=== PATIENT | male | born 1950 | race Caucasian/White ===

== ENCOUNTER 2020-07-26 12:34 | Inpatient (IN) | payer MEDICARE ==
[2020-07-26] MEDS ORDERED: Lasix 40 MG/4 ML IV ONE (12:45)
[2020-07-26 12:48] LABS: A-aADO2 47; ABG HEMOGLOBIN 14.2; ABG POTASSIUM 4.5 (3.5-5.1); ARTERIAL BLD GAS O2 SATURATION 99.7 % (95-100); ARTERIAL BLD GAS TIDAL VOLUME 12 cc; ARTERIAL BLOOD GAS BASE EXCESS -2.4 (-2.0-2.0); ARTERIAL BLOOD GAS FIO2 50 %; ARTERIAL BLOOD GAS PCO2 34 mmHg (35-45); ARTERIAL BLOOD GAS PO2 267 mmHg (75-100); ARTERIAL BLOOD GAS VENT MODE BiPAP; ARTERIAL BLOOD GAS pH 7.41 (7.35-7.45); HCO3- 21.6 (22-28); HGB O2 SAT 97.4 g/dF (94-100); Methhemoglobin 1.3 % (1.4-1.5); paO2 pAO1 0.85
[2020-07-26 12:49] LABS: ABG SITE LEFT BRACHIAL
[2020-07-26] MEDS ORDERED: Lasix 40 MG/4 ML ONE (12:49)
[2020-07-26] MEDS ORDERED: Levofloxacin 500MG/100ML D5W 500 MG/100 ML BAG IV STA (12:53)
[2020-07-26] MEDS ORDERED: Levofloxacin 500MG/100ML D5W 500 MG/100 ML BAG IV ONE (12:54)
--- NOTE | 2020-07-26 13:19 | XRAY ---
Indication: Short of breath. Dyspnea. Comparison: None Portable apical lordotic chest demonstrates cardiomegaly. No focal infiltrate, consolidation, or large effusion. Bony thorax intact with mild osteopenia, advanced left shoulder degenerative arthropathy, and incompletely visualized old left humeral neck fracture. Impression: Cardiomegaly. Negative for acute pneumonic process or CHF.
[2020-07-26 13:35] LABS: Absolute Neutrophil Ct (ANC) 5.46 (1.4-6.9); BASOPHIL % 0.1 % (0.0-0.4); Basophil (Absolute #) 0.01 (0-0.4); Eosinophil % 0.1 % (0.00-5.0); Eosinophil (Absolute #) 0.01 (0-0.5); Hemoglobin 14.1 gm/dl (12.5-18.0); Lymphocyte (Absolute #) 0.76 (1.0-4.6); Lymphocytes % 10.9 % (24.0-44.0); Mean Cell Volume 85.1 fl (78-100); Mean Corpuscular Hemoglobin 27.3 pg (26-32); Mean Platelet Volume 10.5 fl (7.5-11.0); Monocyte (Absolute #) 0.74 (0.0-1.3); Monocytes % 10.6 % (0.0-12.0); Neutrophil % 78.3 % (36.0-66.0); Platelet Count 247 K/mm3 (150-450); Red Blood Count 5.17 M/mm3 (4.1-5.6); Red Cell Distribution Width 18.9 % (11.5-14.0)
[2020-07-26 13:43] LABS: Appearance SLIGHTLY CLOUDY (CLEAR); Bacteria RARE /HPF (NEGATIVE); Bilirubin NEGATIVE (NEGATIVE); Blood NEGATIVE Ery/ul (0-5); Glucose NEGATIVE (NEGATIVE); Hyaline Casts 0-2 /LPF (0-2); Ketones NEGATIVE (NEGATIVE); Leukocyte Esterase NEGATIVE (NEGATIVE); Mucus SLIGHT /HPF (NEGATIVE); Nitrite NEGATIVE (NEGATIVE); Protein,Urine Dip 100 (Negative); Specific Gravity 1.025 (1.005-1.025); Urobilinogen 4 mg/dL (0-1)
[2020-07-26 14:05] LABS: ALKALINE PHOSPHATASE 130 U/L (38-126); BLOOD UREA NITROGEN 20 mg/dL (9-20); CHLORIDE 98 mmol/L (98-107); CK-Creatinine Phosphokinase 87 U/L (55-170); Calcium 9.2 mg/dL (8.4-10.2); Carbon Dioxide 24 mmol/L (22-30); Creatinine 1 0.74 mg/dL (0.66-1.25); EST GLOMERULAR FILTRATION RATE > 60.0 ML/MIN; Glucose 129 mg/dL (74-106); MAGNESIUM 2.3 mg/dL (1.6-2.3); NT PRO BNP 17100 pg/mL (0-900); Potassium 4.8 mmol/L (3.5-5.1); SGOT/AST 119 U/L (17-59); SGPT/ALT 78 U/L (0-50); SODIUM 134 mmol/L (137-145); Total Protein 7.7 g/dL (6.3-8.2)
--- NOTE | 2020-07-26 14:16 | ERPHSYRPT ---
- History of Present Illness Time Seen by Provider: 07/26/20 12:40 Source: patient Exam Limitations: no limitations Patient Subjective Stated Complaint: Feeling SOB, denies pain Triage Nursing Assessment: Patient to ED by EMS from [facility] with CC of increased SOB, respiratory distress. 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 Upon arrival, pt on CPAP, increased WOB noted. Respirations somewhat shallow, diminished lung sounds noted. 99% on CPAP. Skin pale, warm, and dry. Pt A &Ox3, answers questions appropriately, but appears drowsy. Nail beds somewhat blue, cap refill slightly delayed. Physician History: Patient to ED by EMS from [facility] with CC of increased SOB, respiratory distress. 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 Upon arrival, pt on CPAP, increased WOB noted. Respirations somewhat shallow, diminished lung sounds noted. Timing/Duration: today Activities at Onset: none Severity of Dyspnea-Max: moderate Severity of Dyspnea-Current: moderate Possible Cause: occasional episodes Modifying Factors: Improves With: exertion, oxygen, other (BiPAP) Associated Symptoms: constant, wheezing Allergies/Adverse Reactions: codeine Allergy (Unknown, Verified 07/26/20 13:01) Penicillins Allergy (Unknown, Verified 07/26/20 13:01) Hx Tetanus, Diphtheria Vaccination/Date Given: Yes Immunizations Up to Date: (unknown) Travel Risk - International Travel Have you traveled outside of the country in past 3 weeks: No - Coronavirus Screening Are you exhibiting any of the following symptoms?: Yes Symptoms: Shortness of Breath Close contact with a COVID-19 positive Pt in past 14-21 Days: No - Review of Systems Constitutional: No Fever, No Chills Eyes: No Symptoms Ears, Nose, & Throat: No Symptoms Respiratory: Cough, Dyspnea, Wheezing Cardiac: No Chest Pain, No Edema, No Syncope Abdominal/Gastrointestinal: No Abdominal Pain, No Nausea, No Vomiting, No Diarrhea Genitourinary Symptoms: No Dysuria Musculoskeletal: No Back Pain, No Neck Pain Skin: No Rash Neurological: No Dizziness, No Focal Weakness, No Sensory Changes Psychological: No Symptoms Endocrine: No Symptoms All Other Systems: Reviewed and Negative - Past Medical History Pertinent Past Medical History: Yes Neurological History: No Pertinent History ENT History: No Pertinent History Cardiac History: Congestive Heart Failure, Coronary Artery Disease Respiratory History: COPD Endocrine Medical History: Diabetes Type II Musculoskeletal History: No Pertinent History GI Medical History: No Pertinent History History: No Pertinent History Psycho-Social History: No Pertinent History Male Reproductive Disorders: No Pertinent History - Past Surgical History Past Surgical History: (unknown) - Social History Smoking Status: Unknown if ever smoked Exposure to second hand smoke: No Drug Use: none Patient Lives Alone: No ([facility]) - Nursing Vital Signs Nursing Vital Signs: Initial Vital Signs Pulse Rate 91 H 07/26/20 12:38 Respiratory Rate 23 07/26/20 12:38 Blood Pressure 127/95 07/26/20 12:38 O2 Sat by Pulse Oximetry 99 07/26/20 12:38 Pain Scale Pain Intensity 0 - Physical Exam General Appearance: no apparent distress, mild distress, alert, other (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, 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) Eye Exam: PERRL/EOMI Neck Exam: normal inspection, supple Respiratory Exam: normal breath sounds, lungs clear, respiratory distress, airway intact, diminished breath sounds, accessory muscle use, prolonged expirations Cardiovascular/Chest Exam: normal heart sounds, regular rate/rhythm Abdominal/Gastrointestinal Exam: soft, normal bowel sounds, No tenderness, No distention, No mass Extremity Exam: non-tender, normal range of motion, normal inspection, no calf tenderness, no pedal edema Neurologic Exam: alert, oriented x 3, cooperative, climbing guide II-XII nml as tested, sensation nml, No motor deficits Skin Exam: normal color, warm, No dry SpO2 Interpretation: hypoxic SpO2: 96 O2 Delivery: BiPap/CPAP Ordered Tests: Active Orders 24 hr Category Date Time Status Galvanometer Assembler STAT Care 07/26/20 12:46 Active EKG-ER Only STAT Care 07/26/20 12:45 Active Duffy [Catheter-[place] Duffy] STAT Care 07/26/20 12:58 Active IV Insertion STAT Care 07/26/20 12:45 Active Pulse Oximetry (ED) STAT Care 07/26/20 12:45 Active CHEST 1 VIEW (PORTABLE) Stat Exams 07/26/20 12:46 Completed ARTERIAL BLOOD GASES Urgent Lab 07/26/20 12:45 Completed BLOOD CULTURE Stat Lab 07/26/20 13:20 Received CBC W DIFF Stat Lab 07/26/20 13:05 Completed CK-Creatinine Phosphokinase Stat Lab 07/26/20 13:05 Completed CMP Stat Lab 07/26/20 13:05 Completed CULTURE,URINE Stat Lab 07/26/20 12:57 Ordered Lactic Acid Stat Lab 07/26/20 12:45 Completed Lactic Acid Stat Lab 07/26/20 14:50 Received MAGNESIUM Stat Lab 07/26/20 13:05 Completed NT PRO BNP Stat Lab 07/26/20 13:05 Completed PROTIME WITH INR Stat Lab 07/26/20 13:05 Completed PTT Stat Lab 07/26/20 13:05 Completed TROPONIN Q3H Lab 07/26/20 13:05 Completed TROPONIN Q3H Lab 07/26/20 15:45 Ordered TROPONIN Q3H Lab 07/26/20 18:45 Ordered UA W/RFX UR CULTURE Stat Lab 07/26/20 Completed BiPap/CPAP STAT RT 07/26/20 13:07 Active Medication Summary Discontinued Medications Generic Name Dose Route Start Last Admin Trade Name Freq PRN Reason Stop Dose Admin Furosemide 40 mg 07/26/20 12:45 07/26/20 12:50 Lasix 40 Mg/4 Ml IV 07/26/20 12:46 40 mg STAT ONE Administration Furosemide Confirm 07/26/20 12:49 Lasix 40 Mg/4 Ml Administered 07/26/20 12:50 Dose 40 mg .ROUTE .STK-MED ONE Levofloxacin/Dextrose 500 mg in 100 mls @ 100 mls/hr 07/26/20 12:53 07/26/20 13:57 Levofloxacin 500mg/100ml D5w IV 07/26/20 13:52 Infused STAT STA Infusion Levofloxacin/Dextrose Confirm 07/26/20 12:54 Levofloxacin 500mg/100ml D5w Administered 07/26/20 12:55 Dose 500 mg in 100 mls @ ud IV .STK-MED ONE Lab/Rad Data: Laboratory Result Diagrams 07/26/20 13:05 07/26/20 13:05 Laboratory Results 07/26/20 07/26/20 07/26/20 Range/Units Unknown 14:13 13:05 WBC (4.0-10.5) K/mm3 RBC (4.1-5.6) M/mm3 Hgb (12.5-18.0) gm/dl Hct (42-50) % MCV (78-100) fl MCH (26-32) pg MCHC (32-36) g/dl RDW (11.5-14.0) % Plt Count (150-450) K/mm3 MPV (7.5-11.0) fl Gran % (36.0-66.0) % Eos # (Auto) (0-0.5) Absolute Lymphs (auto) (1.0-4.6) Absolute Monos (auto) (0.0-1.3) Lymphocytes % (24.0-44.0) % Monocytes % (0.0-12.0) % Eosinophils % (0.00-5.0) % Basophils % (0.0-0.4) % Absolute Granulocytes (1.4-6.9) Basophils # (0-0.4) PT (8.83-12.87) SECONDS INR (0.8-3.0) APTT (24.1-36.1) SECONDS Puncture Site pCO2 (35-45) mmHg pO2 (75-100) mmHg Base Excess (-2.0-2.0) O2 Saturation (94-100) g/dF ABG pH (7.35-7.45) ABG HCO3 (22-28) ABG O2 Sat (Measured) (95-100) % Rahat Test A-a Gradient a/A Ratio Hemoglobin Carboxyhemoglobin (0.0-6.9) % THgb Methemoglobin (1.4-1.5) % Potassium (3.5-5.1) Temperature C POC O2 Flow Rate % Vent Mode Tidal Volume cc Inspiratory BiPAP Expiratory BiPAP Sodium (137-145) mmol/L Chloride (98-107) mmol/L Carbon Dioxide (22-30) mmol/L Anion Gap (5-15) MEQ/L BUN (9-20) mg/dL Creatinine (0.66-1.25) mg/dL Estimated GFR ML/MIN Glucose (74-106) mg/dL Lactic Acid (0.4-2.0) Calcium (8.4-10.2) mg/dL Magnesium (1.6-2.3) mg/dL Total Bilirubin (0.2-1.3) mg/dL AST (17-59) U/L ALT (0-50) U/L Alkaline Phosphatase (38-126) U/L Creatine Kinase (55-170) U/L Troponin I 0.023 (0.000-0.034) ng/mL NT-Pro-B Natriuret Pep (0-900) pg/mL Serum Total Protein (6.3-8.2) g/dL Albumin (3.5-5.0) g/dL Urine Color [place]ON (YELLOW) Urine Appearance SLIGHTLY CLOUDY (CLEAR) Urine pH 5.0 (5-6) Ur Specific [place] 1.025 (1.005-1.025) Urine Protein 100 (Negative) Urine Ketones NEGATIVE (NEGATIVE) Urine Blood NEGATIVE (0-5) Chepe/ul Urine Nitrite NEGATIVE (NEGATIVE) Urine Bilirubin NEGATIVE (NEGATIVE) Urine Urobilinogen 4 (0-1) mg/dL Ur Leukocyte Esterase NEGATIVE (NEGATIVE) Urine WBC (Auto) 3-5 (0-5) /HPF Urine RBC (Auto) 3-5 (0-2) /HPF U Hyaline Cast (Auto) 0-2 (0-2) /LPF U Epithel Cells (Auto) NONE (FEW) /HPF Urine Bacteria (Auto) RARE (NEGATIVE) /HPF Urine Mucus (Auto) SLIGHT (NEGATIVE) /HPF Urine Culture Reflexed NO (NO) Urine Glucose NEGATIVE (NEGATIVE) mg/dL SARS-CoV-2 (PCR) NEGATIVE (NEGATIVE) 07/26/20 07/26/20 07/26/20 Range/Units 13:05 13:05 13:05 WBC 7.0 (4.0-10.5) K/mm3 RBC 5.17 (4.1-5.6) M/mm3 Hgb 14.1 (12.5-18.0) gm/dl Hct 44.0 (42-50) % MCV 85.1 (78-100) fl MCH 27.3 (26-32) pg MCHC 32.0 (32-36) g/dl RDW 18.9 H (11.5-14.0) % Plt Count 247 (150-450) K/mm3 MPV 10.5 (7.5-11.0) fl Gran % 78.3 H (36.0-66.0) % Eos # (Auto) 0.01 (0-0.5) Absolute Lymphs (auto) 0.76 L (1.0-4.6) Absolute Monos (auto) 0.74 (0.0-1.3) Lymphocytes % 10.9 L (24.0-44.0) % Monocytes % 10.6 (0.0-12.0) % Eosinophils % 0.1 (0.00-5.0) % Basophils % 0.1 (0.0-0.4) % Absolute Granulocytes 5.46 (1.4-6.9) Basophils # 0.01 (0-0.4) PT 16.5 H (8.83-12.87) SECONDS INR 1.45 (0.8-3.0) APTT 27.9 (24.1-36.1) SECONDS Puncture Site pCO2 (35-45) mmHg pO2 (75-100) mmHg Base Excess (-2.0-2.0) O2 Saturation (94-100) g/dF ABG pH (7.35-7.45) ABG HCO3 (22-28) ABG O2 Sat (Measured) (95-100) % Rahat Test A-a Gradient a/A Ratio Hemoglobin Carboxyhemoglobin (0.0-6.9) % THgb Methemoglobin (1.4-1.5) % Potassium 4.8 (3.5-5.1) Temperature C POC O2 Flow Rate % Vent Mode Tidal Volume cc Inspiratory BiPAP Expiratory BiPAP Sodium 134 L (137-145) mmol/L Chloride 98 (98-107) mmol/L Carbon Dioxide 24 (22-30) mmol/L Anion Gap 16.0 H (5-15) MEQ/L BUN 20 (9-20) mg/dL Creatinine 0.74 (0.66-1.25) mg/dL Estimated GFR > 60.0 ML/MIN Glucose 129 H (74-106) mg/dL Lactic Acid (0.4-2.0) Calcium 9.2 (8.4-10.2) mg/dL Magnesium 2.3 (1.6-2.3) mg/dL Total Bilirubin 1.40 H (0.2-1.3) mg/dL AST 119 H (17-59) U/L ALT 78 H (0-50) U/L Alkaline Phosphatase 130 H (38-126) U/L Creatine Kinase 87 (55-170) U/L Troponin I (0.000-0.034) ng/mL NT-Pro-B Natriuret Pep 20237 H (0-900) pg/mL Serum Total Protein 7.7 (6.3-8.2) g/dL Albumin 4.0 (3.5-5.0) g/dL Urine Color (YELLOW) Urine Appearance (CLEAR) Urine pH (5-6) Ur Specific [place] (1.005-1.025) Urine Protein (Negative) Urine Ketones (NEGATIVE) Urine Blood (0-5) Chepe/ul Urine Nitrite (NEGATIVE) Urine Bilirubin (NEGATIVE) Urine Urobilinogen (0-1) mg/dL Ur Leukocyte Esterase (NEGATIVE) Urine WBC (Auto) (0-5) /HPF Urine RBC (Auto) (0-2) /HPF U Hyaline Cast (Auto) (0-2) /LPF U Epithel Cells (Auto) (FEW) /HPF Urine Bacteria (Auto) (NEGATIVE) /HPF Urine Mucus (Auto) (NEGATIVE) /HPF Urine Culture Reflexed (NO) Urine Glucose (NEGATIVE) mg/dL SARS-CoV-2 (PCR) (NEGATIVE) 07/26/20 07/26/20 Range/Units 12:45 12:45 WBC (4.0-10.5) K/mm3 RBC (4.1-5.6) M/mm3 Hgb (12.5-18.0) gm/dl Hct (42-50) % MCV (78-100) fl MCH (26-32) pg MCHC (32-36) g/dl RDW (11.5-14.0) % Plt Count (150-450) K/mm3 MPV (7.5-11.0) fl Gran % (36.0-66.0) % Eos # (Auto) (0-0.5) Absolute Lymphs (auto) (1.0-4.6) Absolute Monos (auto) (0.0-1.3) Lymphocytes % (24.0-44.0) % Monocytes % (0.0-12.0) % Eosinophils % (0.00-5.0) % Basophils % (0.0-0.4) % Absolute Granulocytes (1.4-6.9) Basophils # (0-0.4) PT (8.83-12.87) SECONDS INR (0.8-3.0) APTT (24.1-36.1) SECONDS Puncture Site LEFT BRACHIAL pCO2 34 L (35-45) mmHg pO2 267 H* (75-100) mmHg Base Excess -2.4 L (-2.0-2.0) O2 Saturation 97.4 (94-100) g/dF ABG pH 7.41 (7.35-7.45) ABG HCO3 21.6 L (22-28) ABG O2 Sat (Measured) 99.7 (95-100) % Rahat Test NOT APPLICABLE A-a Gradient 47 a/A Ratio 0.85 Hemoglobin 14.2 Carboxyhemoglobin 1.0 (0.0-6.9) % THgb Methemoglobin 1.3 L (1.4-1.5) % Potassium 4.5 (3.5-5.1) Temperature 37.0 C POC O2 Flow Rate 50 % Vent Mode BiPAP Tidal Volume 12 cc Inspiratory BiPAP 14 Expiratory BiPAP 6 Sodium (137-145) mmol/L Chloride (98-107) mmol/L Carbon Dioxide (22-30) mmol/L Anion Gap (5-15) MEQ/L BUN (9-20) mg/dL Creatinine (0.66-1.25) mg/dL Estimated GFR ML/MIN Glucose (74-106) mg/dL Lactic Acid 2.7 H (0.4-2.0) Calcium (8.4-10.2) mg/dL Magnesium (1.6-2.3) mg/dL Total Bilirubin (0.2-1.3) mg/dL AST (17-59) U/L ALT (0-50) U/L Alkaline Phosphatase (38-126) U/L Creatine Kinase (55-170) U/L Troponin I (0.000-0.034) ng/mL NT-Pro-B Natriuret Pep (0-900) pg/mL Serum Total Protein (6.3-8.2) g/dL Albumin (3.5-5.0) g/dL Urine Color (YELLOW) Urine Appearance (CLEAR) Urine pH (5-6) Ur Specific [place] (1.005-1.025) Urine Protein (Negative) Urine Ketones (NEGATIVE) Urine Blood (0-5) Chepe/ul Urine Nitrite (NEGATIVE) Urine Bilirubin (NEGATIVE) Urine Urobilinogen (0-1) mg/dL Ur Leukocyte Esterase (NEGATIVE) Urine WBC (Auto) (0-5) /HPF Urine RBC (Auto) (0-2) /HPF U Hyaline Cast (Auto) (0-2) /LPF U Epithel Cells (Auto) (FEW) /HPF Urine Bacteria (Auto) (NEGATIVE) /HPF Urine Mucus (Auto) (NEGATIVE) /HPF Urine Culture Reflexed (NO) Urine Glucose (NEGATIVE) mg/dL SARS-CoV-2 (PCR) (NEGATIVE) - Progress Progress: improved, re-examined Air Movement: fair Progress Note: 07/26/20 15:28 And was on BiPAP to begin with and then he started feeling better so we put him on the nasal cannula. Patient looks comfortable. I talked to Dr. Tirado and he agreed with admission. 07/26/20 15:30 Pt had signed DNR in ER Blood Culture(s) Obtained: Yes Antibiotics given: Yes Discussed with : Jenni Will see patient in: hospital (observation) Counseled pt/family regarding: lab results, diagnosis, rad results - Departure Departure Disposition: Observation Clinical Impression: Dyspnea CHF (congestive heart failure) Qualifiers: Heart failure type: unspecified Heart failure chronicity: acute on chronic Qualified Code(s): I50.9 - Heart failure, unspecified Condition: Fair Critical Care Time: No Referrals: TOMAS CHAUHAN [Primary Care Provider] - Instructions: Heart Failure
[2020-07-26 14:24] LABS: INR 1.45 (0.8-3.0); PROTIME 16.5 SECONDS (8.83-12.87)
[2020-07-26 14:27] LABS: PTT 27.9 SECONDS (24.1-36.1)
[2020-07-26] MEDS ORDERED: Lasix 20 MG/2 ML IV SCH (17:00)
[2020-07-26] MEDS ORDERED: HUMALOG SQ PRN (17:26)
[2020-07-26] MEDS ORDERED: NON-FORMULARY ITEM (Ondansetron Hcl [Zofran] 4 MG) PO PRN (17:29)
[2020-07-26] MEDS ORDERED: ZOFRAN ODT 4 MG PO PRN (17:36)
[2020-07-26] MEDS: Lasix 40 MG/4 ML IV SCH (20:27)
[2020-07-26] MEDS: ZOCOR 20MG PO SCH (21:52)
[2020-07-26] MEDS: Coreg 3.125 MG PO SCH (21:53)
[2020-07-26] MEDS: ENTRESTO 49 MG-51 MG TABLET PO SCH (21:53)
[2020-07-26] MEDS: LUMIGAN 0.01% 2.5 ML OP SCH (21:53)
[2020-07-26] MEDS ORDERED: NON-FORMULARY ITEM (Sacubitril/Valsartan [Entresto 24 Mg-26 Mg Tablet] 1 EACH) PO SCH (22:00)
[2020-07-27 05:53] LABS: Hematocrit 38.9 % (42-50); Hemoglobin 12.4 gm/dl (12.5-18.0); Mean Cell Volume 85.5 fl (78-100); Mean Corpuscular Hemoglobin 27.3 pg (26-32); Mean Corpuscular Hgb Concent. 31.9 g/dl (32-36); Mean Platelet Volume 10.8 fl (7.5-11.0); Platelet Count 192 K/mm3 (150-450); Red Blood Count 4.55 M/mm3 (4.1-5.6); Red Cell Distribution Width 18.2 % (11.5-14.0); White Blood Count 6.3 K/mm3 (4.0-10.5)
[2020-07-27] MEDS: SYNTHROID 25 MCG PO SCH (06:04)
[2020-07-27 06:22] LABS: ANION GAP 12.6 MEQ/L (5-15); BLOOD UREA NITROGEN 23 mg/dL (9-20); CHLORIDE 99 mmol/L (98-107); Calcium 8.7 mg/dL (8.4-10.2); Carbon Dioxide 27 mmol/L (22-30); Creatinine 1 0.63 mg/dL (0.66-1.25); EST GLOMERULAR FILTRATION RATE > 60.0 ML/MIN; Glucose 154 mg/dL (74-106); NT PRO BNP 16700 pg/mL (0-900); Potassium 3.9 mmol/L (3.5-5.1); SODIUM 134 mmol/L (137-145)
--- NOTE | 2020-07-27 08:19 | PCM.HP ---
History of Present Illness - Chief Complaint Chief Complaint: CHF, DYSPNEA History of Present Illness: is a 70 year old male who was sent for evaluation with shortness of breath and increased swelling, has a known hx of CHF. he denies complaints this morning but is disoriented and a very poor historian and hard to understand. negative fluid balance is documented - Review of Systems Constitutional: No Symptoms Respiratory: Short Of Breath Cardiac: Edema, No Chest Pain Abdominal/Gastrointestinal: No Abdominal Pain, No Nausea, No Vomiting, No Diarrhea Genitourinary Symptoms: No Dysuria Skin: No Rash All Other Systems: Reviewed and Negative Medications & Allergies Home Medications: Home Medication List Acetaminophen 325 mg [Tylenol 325 mg] 650 mg PO Q4HPRN PRN 07/26/20 [History Confirmed 07/26/20] Atorvastatin Calcium [Lipitor] 40 mg PO 1600 07/26/20 [History Confirmed 07/26/20] Bimatoprost 0.01% [Lumigan 0.01% 2.5 ml] 1 drop OP HS 07/26/20 [History Confirmed 07/26/20] Carvedilol 3.125 mg [Coreg 3.125 MG] 3.125 mg PO BID 07/26/20 [History Confirmed 07/26/20] Clopidogrel Bisulfate 75 mg [PLAVIX 75 MG Tablet] 75 mg PO DAILY 07/26/20 [History Confirmed 07/26/20] Furosemide 40 mg [Lasix 40 MG] 40 mg PO DAILY 07/26/20 [History Confirmed 07/26/20] Levothyroxine Sodium 25 Mcg [Synthroid 25 Mcg] 25 mcg PO 0600 07/26/20 [History Confirmed 07/26/20] Loratadine 10 mg [Claritin 10 mg] 10 mg PO DAILY PRN PRN 07/26/20 [History Confirmed 07/26/20] Magnesium Hydroxide 30 ml [Milk of Magnesia 30 ml] 30 ml PO DAILY PRN PRN 07/26/20 [History Confirmed 07/26/20] Metformin HCl 500 mg [Glucophage 500 MG] 500 mg PO BIDWM 07/26/20 [History Confirmed 07/26/20] Ondansetron HCl [Zofran] 4 mg PO Q4HPRN PRN 07/26/20 [History Confirmed 07/26/20] Potassium Chloride 10 Meq Tab* [Klor Con 10 MEQ] 20 meq PO DAILY 07/26/20 [History Confirmed 07/26/20] Sacubitril/Valsartan [Entresto 24 mg-26 mg Tablet] 1 each PO BID 07/26/20 [History Confirmed 07/26/20] Sodium Phosphate,Woodward-Dibasic [Enema] 133 ml RC DAILY PRN PRN 07/26/20 [History Confirmed 07/26/20] Allergies/Adverse Reactions: Allergies Allergy/AdvReac Type Severity Reaction Status Date / Time codeine Allergy Unknown Verified 07/26/20 13:01 Penicillins Allergy Unknown Verified 07/26/20 13:01 strawberry Allergy Verified 07/26/20 17:01 - Past Medical History Past Medical History: Yes Neurological History: No Pertinent History ENT History: No Pertinent History Cardiac History: Congestive Heart Failure, Coronary Artery Disease Respiratory History: COPD Endocrine Medical History: Diabetes Type II Musculoskelatal History: No Pertinent History GI Medical History: No Pertinent History History: No Pertinent History Pyscho-Social History: No Pertinent History Male Reproductive Disorders: No Pertinent History - Past Surgical History Past Surgical History: Yes Neuro Surgical History: No Pertinent History Cardiac History: No Pertinent History Respiratory Surgery: No Pertinent History GI Surgical History: No Pertinent History Genitourinary Surgical Hx: No Pertinent History Musculskeletal Surgical Hx: Other Male Surgical History: No Pertinent History Other Surgical History: LEFT SHOULDER - Social History Smoking Status: Former smoker Exposure to second hand smoke: No Alcohol: None Drug Use: none - Physical Exam Vital Signs: Vital Signs - 24 hr Temp Pulse Resp BP Pulse Ox 07/27/20 07:09 93 L 07/27/20 06:57 97.6 F 85 24 112/71 91 L 07/27/20 03:49 97.6 F 85 24 112/71 91 L 07/27/20 00:00 97.3 F 91 H 28 H 123/86 91 L 07/26/20 20:15 92 L 07/26/20 19:43 97.9 F 89 20 132/87 94 L 07/26/20 16:31 99 07/26/20 16:10 97.6 F 88 18 141/88 100 07/26/20 16:08 96.9 F 88 18 141/88 100 07/26/20 16:07 96.9 F 88 18 141/88 100 07/26/20 16:00 96.9 F 88 18 141/88 100 07/26/20 15:33 96 07/26/20 15:02 20 146/115 99 07/26/20 14:26 130/99 07/26/20 14:22 98.1 F 83 20 90 L 07/26/20 13:37 88 19 118/69 96 07/26/20 13:06 100 07/26/20 12:38 91 H 23 127/95 98 General Appearance: no apparent distress Respiratory Exam: crackles/rales Cardiovascular Exam: regular rate/rhythm, normal heart sounds, normal peripheral pulses Gastrointestinal/Abdomen Exam: soft, normal bowel sounds, No tenderness, No mass Extremity Exam: pedal edema Results - Labs Lab/Micro Results: Lab Results-Last 24 Hours 07/26/20 07/26/20 07/26/20 Range/Units 12:45 12:45 13:05 WBC 7.0 (4.0-10.5) K/mm3 RBC 5.17 (4.1-5.6) M/mm3 Hgb 14.1 (12.5-18.0) gm/dl Hct 44.0 (42-50) % MCV 85.1 (78-100) fl MCH 27.3 (26-32) pg MCHC 32.0 (32-36) g/dl RDW 18.9 H (11.5-14.0) % Plt Count 247 (150-450) K/mm3 MPV 10.5 (7.5-11.0) fl Gran % 78.3 H (36.0-66.0) % Eos # (Auto) 0.01 (0-0.5) Absolute Lymphs (auto) 0.76 L (1.0-4.6) Absolute Monos (auto) 0.74 (0.0-1.3) Lymphocytes % 10.9 L (24.0-44.0) % Monocytes % 10.6 (0.0-12.0) % Eosinophils % 0.1 (0.00-5.0) % Basophils % 0.1 (0.0-0.4) % Absolute Granulocytes 5.46 (1.4-6.9) Basophils # 0.01 (0-0.4) PT (8.83-12.87) SECONDS INR (0.8-3.0) APTT (24.1-36.1) SECONDS Puncture Site LEFT BRACHIAL pCO2 34 L (35-45) mmHg pO2 267 H* (75-100) mmHg Base Excess -2.4 L (-2.0-2.0) O2 Saturation 97.4 (94-100) g/dF ABG pH 7.41 (7.35-7.45) ABG HCO3 21.6 L (22-28) ABG O2 Sat (Measured) 99.7 (95-100) % Rahat Test NOT APPLICABLE A-a Gradient 47 a/A Ratio 0.85 Hemoglobin 14.2 Carboxyhemoglobin 1.0 (0.0-6.9) % THgb Methemoglobin 1.3 L (1.4-1.5) % Potassium 4.5 (3.5-5.1) Temperature 37.0 C POC O2 Flow Rate 50 % Vent Mode BiPAP Tidal Volume 12 cc Inspiratory BiPAP 14 Expiratory BiPAP 6 Sodium (137-145) mmol/L Chloride (98-107) mmol/L Carbon Dioxide (22-30) mmol/L Anion Gap (5-15) MEQ/L BUN (9-20) mg/dL Creatinine (0.66-1.25) mg/dL Estimated GFR ML/MIN Glucose (74-106) mg/dL POC Glucometer (74 to 106) mg/dL Hemoglobin A1c (4.5-6.0) % Lactic Acid 2.7 H (0.4-2.0) Calcium (8.4-10.2) mg/dL Magnesium (1.6-2.3) mg/dL Total Bilirubin (0.2-1.3) mg/dL AST (17-59) U/L ALT (0-50) U/L Alkaline Phosphatase (38-126) U/L Creatine Kinase (55-170) U/L Troponin I (0.000-0.034) ng/mL NT-Pro-B Natriuret Pep (0-900) pg/mL Serum Total Protein (6.3-8.2) g/dL Albumin (3.5-5.0) g/dL Urine Color (YELLOW) Urine Appearance (CLEAR) Urine pH (5-6) Ur Specific [place] (1.005-1.025) Urine Protein (Negative) Urine Ketones (NEGATIVE) Urine Blood (0-5) Chepe/ul Urine Nitrite (NEGATIVE) Urine Bilirubin (NEGATIVE) Urine Urobilinogen (0-1) mg/dL Ur Leukocyte Esterase (NEGATIVE) Urine WBC (Auto) (0-5) /HPF Urine RBC (Auto) (0-2) /HPF U Hyaline Cast (Auto) (0-2) /LPF U Epithel Cells (Auto) (FEW) /HPF Urine Bacteria (Auto) (NEGATIVE) /HPF Urine Mucus (Auto) (NEGATIVE) /HPF Urine Culture Reflexed (NO) Urine Glucose (NEGATIVE) mg/dL SARS-CoV-2 (PCR) (NEGATIVE) 07/26/20 07/26/20 07/26/20 Range/Units 13:05 13:05 13:05 WBC (4.0-10.5) K/mm3 RBC (4.1-5.6) M/mm3 Hgb (12.5-18.0) gm/dl Hct (42-50) % MCV (78-100) fl MCH (26-32) pg MCHC (32-36) g/dl RDW (11.5-14.0) % Plt Count (150-450) K/mm3 MPV (7.5-11.0) fl Gran % (36.0-66.0) % Eos # (Auto) (0-0.5) Absolute Lymphs (auto) (1.0-4.6) Absolute Monos (auto) (0.0-1.3) Lymphocytes % (24.0-44.0) % Monocytes % (0.0-12.0) % Eosinophils % (0.00-5.0) % Basophils % (0.0-0.4) % Absolute Granulocytes (1.4-6.9) Basophils # (0-0.4) PT 16.5 H (8.83-12.87) SECONDS INR 1.45 (0.8-3.0) APTT 27.9 (24.1-36.1) SECONDS Puncture Site pCO2 (35-45) mmHg pO2 (75-100) mmHg Base Excess (-2.0-2.0) O2 Saturation (94-100) g/dF ABG pH (7.35-7.45) ABG HCO3 (22-28) ABG O2 Sat (Measured) (95-100) % Rahat Test A-a Gradient a/A Ratio Hemoglobin Carboxyhemoglobin (0.0-6.9) % THgb Methemoglobin (1.4-1.5) % Potassium 4.8 (3.5-5.1) Temperature C POC O2 Flow Rate % Vent Mode Tidal Volume cc Inspiratory BiPAP Expiratory BiPAP Sodium 134 L (137-145) mmol/L Chloride 98 (98-107) mmol/L Carbon Dioxide 24 (22-30) mmol/L Anion Gap 16.0 H (5-15) MEQ/L BUN 20 (9-20) mg/dL Creatinine 0.74 (0.66-1.25) mg/dL Estimated GFR > 60.0 ML/MIN Glucose 129 H (74-106) mg/dL POC Glucometer (74 to 106) mg/dL Hemoglobin A1c (4.5-6.0) % Lactic Acid (0.4-2.0) Calcium 9.2 (8.4-10.2) mg/dL Magnesium 2.3 (1.6-2.3) mg/dL Total Bilirubin 1.40 H (0.2-1.3) mg/dL AST 119 H (17-59) U/L ALT 78 H (0-50) U/L Alkaline Phosphatase 130 H (38-126) U/L Creatine Kinase 87 (55-170) U/L Troponin I 0.023 (0.000-0.034) ng/mL NT-Pro-B Natriuret Pep 55261 H (0-900) pg/mL Serum Total Protein 7.7 (6.3-8.2) g/dL Albumin 4.0 (3.5-5.0) g/dL Urine Color (YELLOW) Urine Appearance (CLEAR) Urine pH (5-6) Ur Specific [place] (1.005-1.025) Urine Protein (Negative) Urine Ketones (NEGATIVE) Urine Blood (0-5) Chepe/ul Urine Nitrite (NEGATIVE) Urine Bilirubin (NEGATIVE) Urine Urobilinogen (0-1) mg/dL Ur Leukocyte Esterase (NEGATIVE) Urine WBC (Auto) (0-5) /HPF Urine RBC (Auto) (0-2) /HPF U Hyaline Cast (Auto) (0-2) /LPF U Epithel Cells (Auto) (FEW) /HPF Urine Bacteria (Auto) (NEGATIVE) /HPF Urine Mucus (Auto) (NEGATIVE) /HPF Urine Culture Reflexed (NO) Urine Glucose (NEGATIVE) mg/dL SARS-CoV-2 (PCR) (NEGATIVE) 07/26/20 07/26/20 07/26/20 Range/Units 14:13 14:50 15:45 WBC (4.0-10.5) K/mm3 RBC (4.1-5.6) M/mm3 Hgb (12.5-18.0) gm/dl Hct (42-50) % MCV (78-100) fl MCH (26-32) pg MCHC (32-36) g/dl RDW (11.5-14.0) % Plt Count (150-450) K/mm3 MPV (7.5-11.0) fl Gran % (36.0-66.0) % Eos # (Auto) (0-0.5) Absolute Lymphs (auto) (1.0-4.6) Absolute Monos (auto) (0.0-1.3) Lymphocytes % (24.0-44.0) % Monocytes % (0.0-12.0) % Eosinophils % (0.00-5.0) % Basophils % (0.0-0.4) % Absolute Granulocytes (1.4-6.9) Basophils # (0-0.4) PT (8.83-12.87) SECONDS INR (0.8-3.0) APTT (24.1-36.1) SECONDS Puncture Site pCO2 (35-45) mmHg pO2 (75-100) mmHg Base Excess (-2.0-2.0) O2 Saturation (94-100) g/dF ABG pH (7.35-7.45) ABG HCO3 (22-28) ABG O2 Sat (Measured) (95-100) % Rahat Test A-a Gradient a/A Ratio Hemoglobin Carboxyhemoglobin (0.0-6.9) % THgb Methemoglobin (1.4-1.5) % Potassium (3.5-5.1) Temperature C POC O2 Flow Rate % Vent Mode Tidal Volume cc Inspiratory BiPAP Expiratory BiPAP Sodium (137-145) mmol/L Chloride (98-107) mmol/L Carbon Dioxide (22-30) mmol/L Anion Gap (5-15) MEQ/L BUN (9-20) mg/dL Creatinine (0.66-1.25) mg/dL Estimated GFR ML/MIN Glucose (74-106) mg/dL POC Glucometer (74 to 106) mg/dL Hemoglobin A1c (4.5-6.0) % Lactic Acid 3.4 H (0.4-2.0) Calcium (8.4-10.2) mg/dL Magnesium (1.6-2.3) mg/dL Total Bilirubin (0.2-1.3) mg/dL AST (17-59) U/L ALT (0-50) U/L Alkaline Phosphatase (38-126) U/L Creatine Kinase (55-170) U/L Troponin I 0.023 (0.000-0.034) ng/mL NT-Pro-B Natriuret Pep (0-900) pg/mL Serum Total Protein (6.3-8.2) g/dL Albumin (3.5-5.0) g/dL Urine Color (YELLOW) Urine Appearance (CLEAR) Urine pH (5-6) Ur Specific [place] (1.005-1.025) Urine Protein (Negative) Urine Ketones (NEGATIVE) Urine Blood (0-5) Chepe/ul Urine Nitrite (NEGATIVE) Urine Bilirubin (NEGATIVE) Urine Urobilinogen (0-1) mg/dL Ur Leukocyte Esterase (NEGATIVE) Urine WBC (Auto) (0-5) /HPF Urine RBC (Auto) (0-2) /HPF U Hyaline Cast (Auto) (0-2) /LPF U Epithel Cells (Auto) (FEW) /HPF Urine Bacteria (Auto) (NEGATIVE) /HPF Urine Mucus (Auto) (NEGATIVE) /HPF Urine Culture Reflexed (NO) Urine Glucose (NEGATIVE) mg/dL SARS-CoV-2 (PCR) NEGATIVE (NEGATIVE) 07/26/20 07/26/20 07/26/20 Range/Units 17:35 19:15 21:48 WBC (4.0-10.5) K/mm3 RBC (4.1-5.6) M/mm3 Hgb (12.5-18.0) gm/dl Hct (42-50) % MCV (78-100) fl MCH (26-32) pg MCHC (32-36) g/dl RDW (11.5-14.0) % Plt Count (150-450) K/mm3 MPV (7.5-11.0) fl Gran % (36.0-66.0) % Eos # (Auto) (0-0.5) Absolute Lymphs (auto) (1.0-4.6) Absolute Monos (auto) (0.0-1.3) Lymphocytes % (24.0-44.0) % Monocytes % (0.0-12.0) % Eosinophils % (0.00-5.0) % Basophils % (0.0-0.4) % Absolute Granulocytes (1.4-6.9) Basophils # (0-0.4) PT (8.83-12.87) SECONDS INR (0.8-3.0) APTT (24.1-36.1) SECONDS Puncture Site pCO2 (35-45) mmHg pO2 (75-100) mmHg Base Excess (-2.0-2.0) O2 Saturation (94-100) g/dF ABG pH (7.35-7.45) ABG HCO3 (22-28) ABG O2 Sat (Measured) (95-100) % Rahat Test A-a Gradient a/A Ratio Hemoglobin Carboxyhemoglobin (0.0-6.9) % THgb Methemoglobin (1.4-1.5) % Potassium (3.5-5.1) Temperature C POC O2 Flow Rate % Vent Mode Tidal Volume cc Inspiratory BiPAP Expiratory BiPAP Sodium (137-145) mmol/L Chloride (98-107) mmol/L Carbon Dioxide (22-30) mmol/L Anion Gap (5-15) MEQ/L BUN (9-20) mg/dL Creatinine (0.66-1.25) mg/dL Estimated GFR ML/MIN Glucose (74-106) mg/dL POC Glucometer 133 H (74 to 106) mg/dL Hemoglobin A1c 6.13 H (4.5-6.0) % Lactic Acid (0.4-2.0) Calcium (8.4-10.2) mg/dL Magnesium (1.6-2.3) mg/dL Total Bilirubin (0.2-1.3) mg/dL AST (17-59) U/L ALT (0-50) U/L Alkaline Phosphatase (38-126) U/L Creatine Kinase (55-170) U/L Troponin I 0.024 (0.000-0.034) ng/mL NT-Pro-B Natriuret Pep (0-900) pg/mL Serum Total Protein (6.3-8.2) g/dL Albumin (3.5-5.0) g/dL Urine Color (YELLOW) Urine Appearance (CLEAR) Urine pH (5-6) Ur Specific [place] (1.005-1.025) Urine Protein (Negative) Urine Ketones (NEGATIVE) Urine Blood (0-5) Chepe/ul Urine Nitrite (NEGATIVE) Urine Bilirubin (NEGATIVE) Urine Urobilinogen (0-1) mg/dL Ur Leukocyte Esterase (NEGATIVE) Urine WBC (Auto) (0-5) /HPF Urine RBC (Auto) (0-2) /HPF U Hyaline Cast (Auto) (0-2) /LPF U Epithel Cells (Auto) (FEW) /HPF Urine Bacteria (Auto) (NEGATIVE) /HPF Urine Mucus (Auto) (NEGATIVE) /HPF Urine Culture Reflexed (NO) Urine Glucose (NEGATIVE) mg/dL SARS-CoV-2 (PCR) (NEGATIVE) 07/26/20 07/27/20 07/27/20 Range/Units Unknown 04:50 04:50 WBC 6.3 (4.0-10.5) K/mm3 RBC 4.55 (4.1-5.6) M/mm3 Hgb 12.4 L (12.5-18.0) gm/dl Hct 38.9 L (42-50) % MCV 85.5 (78-100) fl MCH 27.3 (26-32) pg MCHC 31.9 L (32-36) g/dl RDW 18.2 H (11.5-14.0) % Plt Count 192 (150-450) K/mm3 MPV 10.8 (7.5-11.0) fl Gran % (36.0-66.0) % Eos # (Auto) (0-0.5) Absolute Lymphs (auto) (1.0-4.6) Absolute Monos (auto) (0.0-1.3) Lymphocytes % (24.0-44.0) % Monocytes % (0.0-12.0) % Eosinophils % (0.00-5.0) % Basophils % (0.0-0.4) % Absolute Granulocytes (1.4-6.9) Basophils # (0-0.4) PT (8.83-12.87) SECONDS INR (0.8-3.0) APTT (24.1-36.1) SECONDS Puncture Site pCO2 (35-45) mmHg pO2 (75-100) mmHg Base Excess (-2.0-2.0) O2 Saturation (94-100) g/dF ABG pH (7.35-7.45) ABG HCO3 (22-28) ABG O2 Sat (Measured) (95-100) % Rahat Test A-a Gradient a/A Ratio Hemoglobin Carboxyhemoglobin (0.0-6.9) % THgb Methemoglobin (1.4-1.5) % Potassium 3.9 (3.5-5.1) Temperature C POC O2 Flow Rate % Vent Mode Tidal Volume cc Inspiratory BiPAP Expiratory BiPAP Sodium 134 L (137-145) mmol/L Chloride 99 (98-107) mmol/L Carbon Dioxide 27 (22-30) mmol/L Anion Gap 12.6 (5-15) MEQ/L BUN 23 H (9-20) mg/dL Creatinine 0.63 L (0.66-1.25) mg/dL Estimated GFR > 60.0 ML/MIN Glucose 154 H (74-106) mg/dL POC Glucometer (74 to 106) mg/dL Hemoglobin A1c (4.5-6.0) % Lactic Acid (0.4-2.0) Calcium 8.7 (8.4-10.2) mg/dL Magnesium (1.6-2.3) mg/dL Total Bilirubin (0.2-1.3) mg/dL AST (17-59) U/L ALT (0-50) U/L Alkaline Phosphatase (38-126) U/L Creatine Kinase (55-170) U/L Troponin I (0.000-0.034) ng/mL NT-Pro-B Natriuret Pep 94351 H (0-900) pg/mL Serum Total Protein (6.3-8.2) g/dL Albumin (3.5-5.0) g/dL Urine Color [place] (YELLOW) Urine Appearance SLIGHTLY CLOUDY (CLEAR) Urine pH 5.0 (5-6) Ur Specific [place] 1.025 (1.005-1.025) Urine Protein 100 (Negative) Urine Ketones NEGATIVE (NEGATIVE) Urine Blood NEGATIVE (0-5) Chepe/ul Urine Nitrite NEGATIVE (NEGATIVE) Urine Bilirubin NEGATIVE (NEGATIVE) Urine Urobilinogen 4 (0-1) mg/dL Ur Leukocyte Esterase NEGATIVE (NEGATIVE) Urine WBC (Auto) 3-5 (0-5) /HPF Urine RBC (Auto) 3-5 (0-2) /HPF U Hyaline Cast (Auto) 0-2 (0-2) /LPF U Epithel Cells (Auto) NONE (FEW) /HPF Urine Bacteria (Auto) RARE (NEGATIVE) /HPF Urine Mucus (Auto) SLIGHT (NEGATIVE) /HPF Urine Culture Reflexed NO (NO) Urine Glucose NEGATIVE (NEGATIVE) mg/dL SARS-CoV-2 (PCR) (NEGATIVE) 07/27/20 07/27/20 Range/Units 04:55 07:54 WBC (4.0-10.5) K/mm3 RBC (4.1-5.6) M/mm3 Hgb (12.5-18.0) gm/dl Hct (42-50) % MCV (78-100) fl MCH (26-32) pg MCHC (32-36) g/dl RDW (11.5-14.0) % Plt Count (150-450) K/mm3 MPV (7.5-11.0) fl Gran % (36.0-66.0) % Eos # (Auto) (0-0.5) Absolute Lymphs (auto) (1.0-4.6) Absolute Monos (auto) (0.0-1.3) Lymphocytes % (24.0-44.0) % Monocytes % (0.0-12.0) % Eosinophils % (0.00-5.0) % Basophils % (0.0-0.4) % Absolute Granulocytes (1.4-6.9) Basophils # (0-0.4) PT (8.83-12.87) SECONDS INR (0.8-3.0) APTT (24.1-36.1) SECONDS Puncture Site pCO2 (35-45) mmHg pO2 (75-100) mmHg Base Excess (-2.0-2.0) O2 Saturation (94-100) g/dF ABG pH (7.35-7.45) ABG HCO3 (22-28) ABG O2 Sat (Measured) (95-100) % Rahat Test A-a Gradient a/A Ratio Hemoglobin Carboxyhemoglobin (0.0-6.9) % THgb Methemoglobin (1.4-1.5) % Potassium (3.5-5.1) Temperature C POC O2 Flow Rate % Vent Mode Tidal Volume cc Inspiratory BiPAP Expiratory BiPAP Sodium (137-145) mmol/L Chloride (98-107) mmol/L Carbon Dioxide (22-30) mmol/L Anion Gap (5-15) MEQ/L BUN (9-20) mg/dL Creatinine (0.66-1.25) mg/dL Estimated GFR ML/MIN Glucose (74-106) mg/dL POC Glucometer 133 H (74 to 106) mg/dL Hemoglobin A1c (4.5-6.0) % Lactic Acid 3.0 H (0.4-2.0) Calcium (8.4-10.2) mg/dL Magnesium (1.6-2.3) mg/dL Total Bilirubin (0.2-1.3) mg/dL AST (17-59) U/L ALT (0-50) U/L Alkaline Phosphatase (38-126) U/L Creatine Kinase (55-170) U/L Troponin I (0.000-0.034) ng/mL NT-Pro-B Natriuret Pep (0-900) pg/mL Serum Total Protein (6.3-8.2) g/dL Albumin (3.5-5.0) g/dL Urine Color (YELLOW) Urine Appearance (CLEAR) Urine pH (5-6) Ur Specific [place] (1.005-1.025) Urine Protein (Negative) Urine Ketones (NEGATIVE) Urine Blood (0-5) Chepe/ul Urine Nitrite (NEGATIVE) Urine Bilirubin (NEGATIVE) Urine Urobilinogen (0-1) mg/dL Ur Leukocyte Esterase (NEGATIVE) Urine WBC (Auto) (0-5) /HPF Urine RBC (Auto) (0-2) /HPF U Hyaline Cast (Auto) (0-2) /LPF U Epithel Cells (Auto) (FEW) /HPF Urine Bacteria (Auto) (NEGATIVE) /HPF Urine Mucus (Auto) (NEGATIVE) /HPF Urine Culture Reflexed (NO) Urine Glucose (NEGATIVE) mg/dL SARS-CoV-2 (PCR) (NEGATIVE) Accuchecks Date 07/26/20 - Radiology Impressions Radiology Exams & Impressions: Radiology Procedures Category Date Time Status CHEST 1 VIEW (PORTABLE) Stat Exams 07/26/20 12:46 Completed - Other Procedures and Tests Respiratory Therapy 07/26/20 16:08 Oxygen NASAL CANNULA 2 lpm Assessment/Plan (1) Acute exacerbation of congestive heart failure Current Visit: Yes Status: Acute Assessment & Plan: continue IV lasix, follow. currently on room air, likely back to ECF tomorrow if doing well. Code(s): I50.9 - HEART FAILURE, UNSPECIFIED
[2020-07-27] MEDS: PLAVIX 75 MG Tablet PO SCH (10:35)
[2020-07-27] MEDS: Coreg 3.125 MG PO SCH ×2 (10:35→22:02)
[2020-07-27] MEDS: TYLENOL 325 MG PO PRN ×2 (10:35→22:02)
[2020-07-27] MEDS: Klor Con 10 MEQ PO SCH (10:35)
[2020-07-27] MEDS: Lasix 40 MG/4 ML IV SCH ×2 (10:35→17:05)
[2020-07-27] MEDS: ENTRESTO 49 MG-51 MG TABLET PO SCH ×2 (10:35→22:01)
[2020-07-27] MEDS ORDERED: NON-FORMULARY ITEM (Atorvastatin Calcium [Lipitor] 40 MG) PO SCH (16:00)
[2020-07-27] MEDS: ZOCOR 20MG PO SCH (22:01)
[2020-07-27] MEDS: LUMIGAN 0.01% 2.5 ML OP SCH (22:02)
[2020-07-28 05:13] LABS: BASOPHIL % 0.2 % (0.0-0.4); Basophil (Absolute #) 0.02 (0-0.4); Eosinophil % 0.4 % (0.00-5.0); Eosinophil (Absolute #) 0.04 (0-0.5); Hematocrit 40.4 % (42-50); Hemoglobin 12.8 gm/dl (12.5-18.0); Lymphocyte (Absolute #) 1.03 (1.0-4.6); Lymphocytes % 10.2 % (24.0-44.0); Mean Cell Volume 85.1 fl (78-100); Mean Corpuscular Hemoglobin 26.9 pg (26-32); Mean Corpuscular Hgb Concent. 31.7 g/dl (32-36); Mean Platelet Volume 10.6 fl (7.5-11.0); Monocyte (Absolute #) 1.16 (0.0-1.3); Monocytes % 11.5 % (0.0-12.0); Neutrophil % 77.7 % (36.0-66.0); Platelet Count 225 K/mm3 (150-450); Red Blood Count 4.75 M/mm3 (4.1-5.6); Red Cell Distribution Width 18.5 % (11.5-14.0); White Blood Count 10.1 K/mm3 (4.0-10.5)
[2020-07-28] MEDS: SYNTHROID 25 MCG PO SCH (05:35)
[2020-07-28 05:52] LABS: ANION GAP 10.9 MEQ/L (5-15); BLOOD UREA NITROGEN 26 mg/dL (9-20); CHLORIDE 100 mmol/L (98-107); Calcium 8.5 mg/dL (8.4-10.2); Carbon Dioxide 28 mmol/L (22-30); Creatinine 1 0.61 mg/dL (0.66-1.25); EST GLOMERULAR FILTRATION RATE > 60.0 ML/MIN; Glucose 133 mg/dL (74-106); NT PRO BNP 10400 pg/mL (0-900); Potassium 3.8 mmol/L (3.5-5.1); SODIUM 135 mmol/L (137-145)
--- NOTE | 2020-07-28 08:09 | PCM.NOTE ---
Date and Time: 07/28/20 0807 Subjective Assessment: patient more sleepy this morning, requiring oxygen overnight but he does respond to questioning. Objective Exam General Appearance: no apparent distress Neurologic Exam: No oriented x 3 Respiratory Exam: rhonchi Cardiovascular Exam: regular rate/rhythm, normal heart sounds Gastrointestinal/Abdomen Exam: soft, No tenderness, No mass Extremity Exam: swelling (trace) OBJECTIVE DATA Vital Signs: Vital Signs - 24 hr Temp Pulse Resp BP Pulse Ox 07/28/20 07:17 97.7 F 76 12 122/79 99 07/28/20 03:57 97.4 F 85 19 130/81 97 07/28/20 00:00 98.0 F 63 22 109/86 94 L 07/27/20 20:44 97 07/27/20 20:03 97.4 F 92 H 23 110/80 96 07/27/20 16:53 98.1 F 60 18 110/87 97 07/27/20 12:00 97.7 F 80 18 121/78 90 L 07/27/20 09:00 97.2 F 79 22 126/85 96 Pain Assessment - Last Documented Pain Intensity 2 Pain Scale Used FLACC Intake and Output: Intake & Output 07/25/20 07/26/20 07/27/20 07/28/20 11:59 11:59 11:59 11:59 Intake Total 100 620 Output Total 3150 2500 Balance -3050 -1880 Weight 92.6 kg 94.7 kg Lab Results: Lab Results-Last 24 Hours 07/27/20 07/27/20 07/27/20 Range/Units 11:54 16:27 20:40 WBC (4.0-10.5) K/mm3 RBC (4.1-5.6) M/mm3 Hgb (12.5-18.0) gm/dl Hct (42-50) % MCV (78-100) fl MCH (26-32) pg MCHC (32-36) g/dl RDW (11.5-14.0) % Plt Count (150-450) K/mm3 MPV (7.5-11.0) fl Gran % (36.0-66.0) % Eos # (Auto) (0-0.5) Absolute Lymphs (auto) (1.0-4.6) Absolute Monos (auto) (0.0-1.3) Lymphocytes % (24.0-44.0) % Monocytes % (0.0-12.0) % Eosinophils % (0.00-5.0) % Basophils % (0.0-0.4) % Absolute Granulocytes (1.4-6.9) Basophils # (0-0.4) Sodium (137-145) mmol/L Potassium (3.5-5.1) mmol/L Chloride (98-107) mmol/L Carbon Dioxide (22-30) mmol/L Anion Gap (5-15) MEQ/L BUN (9-20) mg/dL Creatinine (0.66-1.25) mg/dL Estimated GFR ML/MIN Glucose (74-106) mg/dL POC Glucometer 138 H 114 H 121 H (74 to 106) mg/dL Calcium (8.4-10.2) mg/dL NT-Pro-B Natriuret Pep (0-900) pg/mL 07/28/20 07/28/20 07/28/20 Range/Units 04:45 04:45 06:48 WBC 10.1 (4.0-10.5) K/mm3 RBC 4.75 (4.1-5.6) M/mm3 Hgb 12.8 (12.5-18.0) gm/dl Hct 40.4 L (42-50) % MCV 85.1 (78-100) fl MCH 26.9 (26-32) pg MCHC 31.7 L (32-36) g/dl RDW 18.5 H (11.5-14.0) % Plt Count 225 (150-450) K/mm3 MPV 10.6 (7.5-11.0) fl Gran % 77.7 H (36.0-66.0) % Eos # (Auto) 0.04 (0-0.5) Absolute Lymphs (auto) 1.03 (1.0-4.6) Absolute Monos (auto) 1.16 (0.0-1.3) Lymphocytes % 10.2 L (24.0-44.0) % Monocytes % 11.5 (0.0-12.0) % Eosinophils % 0.4 (0.00-5.0) % Basophils % 0.2 (0.0-0.4) % Absolute Granulocytes 7.80 H (1.4-6.9) Basophils # 0.02 (0-0.4) Sodium 135 L (137-145) mmol/L Potassium 3.8 (3.5-5.1) mmol/L Chloride 100 (98-107) mmol/L Carbon Dioxide 28 (22-30) mmol/L Anion Gap 10.9 (5-15) MEQ/L BUN 26 H (9-20) mg/dL Creatinine 0.61 L (0.66-1.25) mg/dL Estimated GFR > 60.0 ML/MIN Glucose 133 H (74-106) mg/dL POC Glucometer 127 H (74 to 106) mg/dL Calcium 8.5 (8.4-10.2) mg/dL NT-Pro-B Natriuret Pep 19882 H (0-900) pg/mL Radiology Exams: Radiology Procedures Category Date Time Status CHEST 1 VIEW (PORTABLE) Stat Exams 07/26/20 12:46 Completed Multi-Disciplinary Progress Notes: Multi-Disciplinary Progress Notes 07/28/20 07:48 Case Management Note by Meghan Bright DISCHARGE NEEDS REVIEWED, PLAN T RETURN TO [facility]. Initialized on 07/28/20 07:48 - END OF NOTE 07/28/20 03:38 Respiratory Note by Yanni Estrada NURSE CALLED TO REPORT PT'S SATS LOW WHILE SLEEPING AND HAVING PERIODS OF APNEA. SHE REPORTED THAT SHE PLACED HIM ON 2L OXYGEN AND SATS SLOWLY CAME UP BUT WOULD STILL DROP DURING APNEIC PERIODS. PLACED PT ON 5L OXYMASK. SATS REMAINED IN THE 90S DURING HIS APNEIC PERIODS. WILL CONTINUE TO MONITOR. Initialized on 07/28/20 03:38 - END OF NOTE 07/27/20 11:06 Case Management Note by Isis Matthews S/W [place]- PATIENT HAS NO FAMILY. THEY ARE WORKING ON GETTING HIM A GUARDIAN AT THIS TIME. PATIENT STILL CONFUSED THIS AM. WILL TRY TO SPEAK WITH PATIENT AGAIN IN THE AM Initialized on 07/27/20 11:06 - END OF NOTE Assessment/Plan (1) Acute exacerbation of congestive heart failure Current Visit: Yes Status: Acute Code(s): I50.9 - HEART FAILURE, UNSPECIFIED (2) UTI (urinary tract infection) Current Visit: Yes Status: Acute Assessment & Plan: added macrobid for enterococcus in urine Code(s): N39.0 - URINARY TRACT INFECTION, SITE NOT SPECIFIED (3) Altered mental status Current Visit: Yes Status: Acute Assessment & Plan: check LFT's and ammonia level today, will add ct head to r/o spontaneous bleed Code(s): R41.82 - ALTERED MENTAL STATUS, UNSPECIFIED
--- NOTE | 2020-07-28 09:25 | XRAY ---
Indication: Follow-up CHF. Comparison: July 26, 2020. Portable apical lordotic chest again demonstrates cardiomegaly with now mild central vascular prominence, mild pulmonary edema, and tiny bibasilar effusions favoring cardiac decompensation/fluid overload. Superimposed pneumonia not completely excluded.
[2020-07-28] MEDS: Coreg 3.125 MG PO SCH ×2 (09:30→21:08)
[2020-07-28] MEDS: Macrobid 100MG Capsule PO SCH ×2 (09:30→17:30)
[2020-07-28] MEDS: PLAVIX 75 MG Tablet PO SCH (09:30)
[2020-07-28] MEDS: Klor Con 10 MEQ PO SCH (09:30)
[2020-07-28] MEDS: ENTRESTO 49 MG-51 MG TABLET PO SCH ×2 (09:30→21:08)
[2020-07-28] MEDS: Lasix 40 MG/4 ML IV SCH ×2 (09:31→17:30)
--- NOTE | 2020-07-28 09:33 | XRAY ---
Indication: Altered mental status. Multiple contiguous axial images obtained through the head without contrast. Comparison: None Study degraded by motion artifact even with repeat CT. There is age-appropriate global atrophy and mild periventricular degenerative micro-ischemia bilaterally. No gross acute intracranial hemorrhage, abnormal extra-axial fluid collection, or mass effect. Fourth ventricle is midline without hydrocephalus. Bony calvarium grossly intact. Visualized paranasal sinuses and mastoid air cells are clear. Impression: Motion artifact. Atrophy and degenerative micro-ischemia within normal limits for patient's age. No gross acute intracranial abnormalities.
[2020-07-28 10:05] LABS: ALBUMIN 3.4 g/dL (3.5-5.0); BILIRUBIN,TOTAL 0.8 mg/dL (0.2-1.3); Direct Bilirubin 0.3 mg/dL (0.0-0.4); Total Protein 6.7 g/dL (6.3-8.2)
[2020-07-28] MEDS: ZOCOR 20MG PO SCH (21:08)
[2020-07-28] MEDS: LUMIGAN 0.01% 2.5 ML OP SCH (21:09)
[2020-07-29] MEDS: SYNTHROID 25 MCG PO SCH (05:10)
[2020-07-29 06:05] LABS: Absolute Neutrophil Ct (ANC) 7.68 (1.4-6.9); BASOPHIL % 0.2 % (0.0-0.4); Basophil (Absolute #) 0.02 (0-0.4); Eosinophil % 2.3 % (0.00-5.0); Eosinophil (Absolute #) 0.22 (0-0.5); Hematocrit 43.5 % (42-50); Hemoglobin 13.7 gm/dl (12.5-18.0); Lymphocyte (Absolute #) 0.83 (1.0-4.6); Lymphocytes % 8.6 % (24.0-44.0); Mean Cell Volume 85.8 fl (78-100); Mean Corpuscular Hgb Concent. 31.5 g/dl (32-36); Mean Platelet Volume 9.9 fl (7.5-11.0); Monocyte (Absolute #) 0.91 (0.0-1.3); Monocytes % 9.4 % (0.0-12.0); Neutrophil % 79.5 % (36.0-66.0); Platelet Count 207 K/mm3 (150-450); Red Blood Count 5.07 M/mm3 (4.1-5.6); Red Cell Distribution Width 18.6 % (11.5-14.0); White Blood Count 9.7 K/mm3 (4.0-10.5)
[2020-07-29 06:29] LABS: BLOOD UREA NITROGEN 22 mg/dL (9-20); CHLORIDE 99 mmol/L (98-107); Calcium 8.3 mg/dL (8.4-10.2); Carbon Dioxide 31 mmol/L (22-30); Creatinine 1 0.57 mg/dL (0.66-1.25); EST GLOMERULAR FILTRATION RATE > 60.0 ML/MIN; Glucose 144 mg/dL (74-106); NT PRO BNP 7240 pg/mL (0-900); Potassium 3.6 mmol/L (3.5-5.1); SODIUM 135 mmol/L (137-145)
--- NOTE | 2020-07-29 08:31 | PCM.DS ---
Discharge Summary Date of Admission: 07/28/20 03:36 Admitting Physician: BRANDIN MOULTON Primary Care Provider: MARGI Allergies Allergies codeine Allergy (Unknown, Verified 07/26/20 13:01) Penicillins Allergy (Unknown, Verified 07/26/20 13:01) strawberry Allergy (Verified 07/26/20 17:01) Hospital Summary - Hospital Course Hospital Course: patient was admitted with chf exacerbation, has diuresed and doing much better. he is more alert and states he feels better and would like to go back to [facility] today. his breathing is better, he is on room air. he tried to bum a cigarette from me during rounds this morning. - Vitals & Intake/Output Vital Signs: Vital Signs Temperature 97.1 F 07/29/20 07:47 Pulse Rate 80 07/29/20 07:47 Respiratory Rate 18 07/29/20 07:47 Blood Pressure 129/89 07/29/20 07:47 O2 Sat by Pulse Oximetry 89 L 07/29/20 07:47 Intake & Output: Intake & Output 07/26/20 07/27/20 07/28/20 07/29/20 11:59 11:59 11:59 11:59 Intake Total 100 620 880 Output Total 3150 2500 4600 Balance -3050 -1880 -3720 Weight 92.6 kg 94.7 kg - Lab Result Diagrams: 07/29/20 05:40 07/29/20 05:40 Lab Results-Last 24 Hrs: Lab Results-Last 24 Hours 07/28/20 07/28/20 07/28/20 Range/Units 04:30 09:33 11:07 WBC (4.0-10.5) K/mm3 RBC (4.1-5.6) M/mm3 Hgb (12.5-18.0) gm/dl Hct (42-50) % MCV (78-100) fl MCH (26-32) pg MCHC (32-36) g/dl RDW (11.5-14.0) % Plt Count (150-450) K/mm3 MPV (7.5-11.0) fl Gran % (36.0-66.0) % Eos # (Auto) (0-0.5) Absolute Lymphs (auto) (1.0-4.6) Absolute Monos (auto) (0.0-1.3) Lymphocytes % (24.0-44.0) % Monocytes % (0.0-12.0) % Eosinophils % (0.00-5.0) % Basophils % (0.0-0.4) % Absolute Granulocytes (1.4-6.9) Basophils # (0-0.4) Sodium (137-145) mmol/L Potassium (3.5-5.1) mmol/L Chloride (98-107) mmol/L Carbon Dioxide (22-30) mmol/L Anion Gap (5-15) MEQ/L BUN (9-20) mg/dL Creatinine (0.66-1.25) mg/dL Estimated GFR ML/MIN Glucose (74-106) mg/dL POC Glucometer 118 H (74 to 106) mg/dL Calcium (8.4-10.2) mg/dL Total Bilirubin 0.80 (0.2-1.3) mg/dL Direct Bilirubin 0.3 (0.0-0.4) mg/dL AST 48 (17-59) U/L ALT 51 H (0-50) U/L Alkaline Phosphatase 110 (38-126) U/L Ammonia < 9 L (9-30) umol/L NT-Pro-B Natriuret Pep (0-900) pg/mL Serum Total Protein 6.7 (6.3-8.2) g/dL Albumin 3.4 L (3.5-5.0) g/dL 07/28/20 07/28/20 07/29/20 Range/Units 16:26 20:37 05:40 WBC 9.7 (4.0-10.5) K/mm3 RBC 5.07 (4.1-5.6) M/mm3 Hgb 13.7 (12.5-18.0) gm/dl Hct 43.5 (42-50) % MCV 85.8 (78-100) fl MCH 27.0 (26-32) pg MCHC 31.5 L (32-36) g/dl RDW 18.6 H (11.5-14.0) % Plt Count 207 (150-450) K/mm3 MPV 9.9 (7.5-11.0) fl Gran % 79.5 H (36.0-66.0) % Eos # (Auto) 0.22 (0-0.5) Absolute Lymphs (auto) 0.83 L (1.0-4.6) Absolute Monos (auto) 0.91 (0.0-1.3) Lymphocytes % 8.6 L (24.0-44.0) % Monocytes % 9.4 (0.0-12.0) % Eosinophils % 2.3 (0.00-5.0) % Basophils % 0.2 (0.0-0.4) % Absolute Granulocytes 7.68 H (1.4-6.9) Basophils # 0.02 (0-0.4) Sodium (137-145) mmol/L Potassium (3.5-5.1) mmol/L Chloride (98-107) mmol/L Carbon Dioxide (22-30) mmol/L Anion Gap (5-15) MEQ/L BUN (9-20) mg/dL Creatinine (0.66-1.25) mg/dL Estimated GFR ML/MIN Glucose (74-106) mg/dL POC Glucometer 123 H 121 H (74 to 106) mg/dL Calcium (8.4-10.2) mg/dL Total Bilirubin (0.2-1.3) mg/dL Direct Bilirubin (0.0-0.4) mg/dL AST (17-59) U/L ALT (0-50) U/L Alkaline Phosphatase (38-126) U/L Ammonia (9-30) umol/L NT-Pro-B Natriuret Pep (0-900) pg/mL Serum Total Protein (6.3-8.2) g/dL Albumin (3.5-5.0) g/dL 07/29/20 07/29/20 Range/Units 05:40 07:00 WBC (4.0-10.5) K/mm3 RBC (4.1-5.6) M/mm3 Hgb (12.5-18.0) gm/dl Hct (42-50) % MCV (78-100) fl MCH (26-32) pg MCHC (32-36) g/dl RDW (11.5-14.0) % Plt Count (150-450) K/mm3 MPV (7.5-11.0) fl Gran % (36.0-66.0) % Eos # (Auto) (0-0.5) Absolute Lymphs (auto) (1.0-4.6) Absolute Monos (auto) (0.0-1.3) Lymphocytes % (24.0-44.0) % Monocytes % (0.0-12.0) % Eosinophils % (0.00-5.0) % Basophils % (0.0-0.4) % Absolute Granulocytes (1.4-6.9) Basophils # (0-0.4) Sodium 135 L (137-145) mmol/L Potassium 3.6 (3.5-5.1) mmol/L Chloride 99 (98-107) mmol/L Carbon Dioxide 31 H (22-30) mmol/L Anion Gap 9.0 (5-15) MEQ/L BUN 22 H (9-20) mg/dL Creatinine 0.57 L (0.66-1.25) mg/dL Estimated GFR > 60.0 ML/MIN Glucose 144 H (74-106) mg/dL POC Glucometer 128 H (74 to 106) mg/dL Calcium 8.3 L (8.4-10.2) mg/dL Total Bilirubin (0.2-1.3) mg/dL Direct Bilirubin (0.0-0.4) mg/dL AST (17-59) U/L ALT (0-50) U/L Alkaline Phosphatase (38-126) U/L Ammonia (9-30) umol/L NT-Pro-B Natriuret Pep 7240 H (0-900) pg/mL Serum Total Protein (6.3-8.2) g/dL Albumin (3.5-5.0) g/dL Micro Results-Entire Visit: Microbiology 07/26/20 13:20 Blood Culture - Preliminary Blood NO GROWTH TO DATE 07/26/20 13:05 Blood Culture - Preliminary Blood NO GROWTH TO DATE 07/26/20 12:57 Urine Culture - Final Catherized Enterococcus Faecalis Accuchecks Date 07/29/20 Date 07/28/20 Time 07:30 Time 16:30 - Radiology Exams Ordered Rad Exams-Entire Visit: Radiology Procedures Category Date Time Status CHEST 1 VIEW (PORTABLE) Routine Exams 07/28/20 08:10 Completed HEAD WITHOUT CONTRAST [CT] Routine Exams 07/28/20 08:10 Completed - Procedures and Test Procedures and Tests throughout Hospitalization: Therapy Orders & Screens 07/26/20 13:07 BiPap/CPAP STAT Comment: 07/26/20 16:08 Oxygen NASAL CANNULA 2 lpm Comment: Diagnosis: CHF Discharge Exam General Appearance: no apparent distress Neurologic Exam: alert, cooperative, No oriented x 3 Respiratory Exam: normal breath sounds, lungs clear, No respiratory distress Cardiovascular Exam: regular rate/rhythm, normal heart sounds Gastrointestinal/Abdomen Exam: soft, normal bowel sounds, distention, No tenderness, No mass, No guarding Extremity Exam: normal inspection, normal range of motion Skin Exam: normal color, warm, dry Wound Assessment: Skin/Wound Assessment Wound/Incision Assessment Start: 07/28/20 08:29 Text: Status: Active Freq: Q6H Protocol: Document 07/29/20 02:00 EG (Rec: 07/29/20 02:22 EG [id number]) Wound Photo Photo Taken No Final Diagnosis/Problem List - Final Discharge Diagnosis/Problem (1) Acute exacerbation of congestive heart failure Current Visit: Yes Status: Acute Code(s): I50.9 - HEART FAILURE, UNSPECIFIED (2) UTI (urinary tract infection) Current Visit: Yes Status: Acute Code(s): N39.0 - URINARY TRACT INFECTION, SITE NOT SPECIFIED (3) Altered mental status Current Visit: Yes Status: Acute Code(s): R41.82 - ALTERED MENTAL STATUS, UNSPECIFIED - Discharge Disposition: Skilled Care @ [facility] Condition: Fair Prescriptions: New Nitrofurantoin Macro 100 mg [Macrobid 100MG Capsule] 100 mg PO BIDWM #14 capsule Continue Magnesium Hydroxide 30 ml [Milk of Magnesia 30 ml] 30 ml PO DAILY PRN PRN PRN Reason: Constipation Acetaminophen 325 mg [Tylenol 325 mg] 650 mg PO Q4HPRN PRN PRN Reason: Pain Sodium Phosphate,[place]-Dibasic [Enema] 133 ml RC DAILY PRN PRN PRN Reason: Constipation Loratadine 10 mg [Claritin 10 mg] 10 mg PO DAILY PRN PRN PRN Reason: Allergies Potassium Chloride 10 Meq Tab* [Klor Con 10 MEQ] 20 meq PO DAILY Furosemide 40 mg [Lasix 40 MG] 40 mg PO DAILY Metformin HCl 500 mg [Glucophage 500 MG] 500 mg PO BIDWM Sacubitril/Valsartan [Entresto 24 mg-26 mg Tablet] 1 each PO BID Levothyroxine Sodium 25 Mcg [Synthroid 25 Mcg] 25 mcg PO 0600 Carvedilol 3.125 mg [Coreg 3.125 MG] 3.125 mg PO BID Clopidogrel Bisulfate 75 mg [PLAVIX 75 MG Tablet] 75 mg PO DAILY Bimatoprost 0.01% [Lumigan 0.01% 2.5 ml] 1 drop OP HS Atorvastatin Calcium [Lipitor] 40 mg PO 1600 Ondansetron HCl [Zofran] 4 mg PO Q4HPRN PRN PRN Reason: Nausea Follow up with: TOMAS CHAUHAN [Primary Care Provider] - JORDY FERNÁNDEZ [Family Provider] -
[2020-07-29] MEDS: ENTRESTO 49 MG-51 MG TABLET PO SCH (09:06)
[2020-07-29] MEDS: Klor Con 10 MEQ PO SCH (09:06)
[2020-07-29] MEDS: Coreg 3.125 MG PO SCH (09:06)
[2020-07-29] MEDS: PLAVIX 75 MG Tablet PO SCH (09:06)
[2020-07-29] MEDS: Macrobid 100MG Capsule PO SCH (09:06)
[2020-07-29] MEDS: Lasix 40 MG/4 ML IV SCH (09:07)
[2020-07-29 12:13] VITALS: BP 104/80; PULSE 68; O2SAT 98
== END 2020-07-29 13:28 | DRG 292 ==
LOC: ED 12:34 → MED SURG 16:02 → OBSVTOIN 07-28 03:36
PROVIDERS: ADMIT Family Medicine; ATTEND Family Medicine
DX: I50.9 Heart failure, unspecified (principal); N39.0 Urinary tract infection, site not specified; J44.9 Chronic obstructive pulmonary disease, unspecified; E11.9 Type 2 diabetes mellitus without complications; I25.10 Atherosclerotic heart disease of native coronary artery without angina pectoris; R41.82 Altered mental status, unspecified; Z79.899 Other long term (current) drug therapy; Z79.01 Long term (current) use of anticoagulants; Z11.59 Encounter for screening for other viral diseases
CPT/HCPCS: 36000; 36415; 36600; 51702; 70450; 71045; 80048; 80053; 80076; 81001; 82140; 82375; 82550; 82803; 82947; 83036; 83605; 83735; 83880; 84484; 85025; 85027; 85610; 85730; 87040; 87077; 87086; 87186; 93005; 93041; 93268; 94002; 94760; 94762; 96365; 96374; 99285; G0378; U0003; J1940; J1956; A9270-GY

== ENCOUNTER 2021-01-27 16:10 | Emergency (ER) | payer MEDICARE ==
--- NOTE | 2021-01-27 16:18 | ERPHSYRPT ---
- History of Present Illness Time Seen by Provider: 01/27/21 16:18 Source: patient, EMS, long-term records Exam Limitations: clinical condition Physician History: This is a 71-year-old white male resident of [facility] who has history of dementia, CHF, hypothyroidism and [id number] diabetes. Patient received his first Covid vaccination shot 4 days ago (Moderna). Patient was sent over by the long-term because the patient seems to be more fatigued and weak. There is also some chest congestion per their report. Upon patient arrival patient states he has no complaints although he does state that he should not have gotten his vaccination because he has not felt well since his COVID-19 vaccination. He has had no nausea vomiting or diarrhea. He has no complaints of chest pain or shortness of breath. Timing/Duration: day(s) (Last few days) Severity: mild Modifying Factors: Improves With: nothing Associated Symptoms: weakness (Mild but chronic) Allergies/Adverse Reactions: codeine Allergy (Unknown, Verified 07/26/20 13:01) Penicillins Allergy (Unknown, Verified 07/26/20 13:01) strawberry Allergy (Verified 07/26/20 17:01) Home Medications: Acetaminophen 325 mg [Tylenol 325 mg] 650 mg PO Q4HPRN PRN 07/26/20 [History] Atorvastatin Calcium [Lipitor] 40 mg PO 1600 07/26/20 [History] Bimatoprost 0.01% [Lumigan 0.01% 2.5 ml] 1 drop OP HS 07/26/20 [History] Carvedilol 3.125 mg [Coreg 3.125 MG] 3.125 mg PO BID 07/26/20 [History] Clopidogrel Bisulfate 75 mg [PLAVIX 75 MG Tablet] 75 mg PO DAILY 07/26/20 [History] Furosemide 40 mg [Lasix 40 MG] 40 mg PO DAILY 07/26/20 [History] Levothyroxine Sodium 25 Mcg [Synthroid 25 Mcg] 25 mcg PO 0600 07/26/20 [History] Loratadine 10 mg [Claritin 10 mg] 10 mg PO DAILY PRN PRN 07/26/20 [History] Magnesium Hydroxide 30 ml [Milk of Magnesia 30 ml] 30 ml PO DAILY PRN PRN 07/26/20 [History] Metformin HCl 500 mg [Glucophage 500 MG] 500 mg PO BIDWM 07/26/20 [History] Ondansetron HCl [Zofran] 4 mg PO Q4HPRN PRN 07/26/20 [History] Potassium Chloride 10 Meq Tab* [Klor Con 10 MEQ] 20 meq PO DAILY 07/26/20 [History] Sacubitril/Valsartan [Entresto 24 mg-26 mg Tablet] 1 each PO BID 07/26/20 [History] Sodium Phosphate,[place]-Dibasic [Enema] 133 ml RC DAILY PRN PRN 07/26/20 [History] Cephalexin Mh 500 mg [Keflex 500 mg] 500 mg PO DAILY 01/27/21 [History] Hx Tetanus, Diphtheria Vaccination/Date Given: Yes Travel Risk - International Travel Have you traveled outside of the country in past 3 weeks: No - Coronavirus Screening Are you exhibiting any of the following symptoms?: No Close contact with a COVID-19 positive Pt in past 14-21 Days: No - Vaccine Status Have you recieved a Covid-19 vaccination: Yes Shoeblack: Daryl - Review of Systems Constitutional: Weakness Eyes: No Symptoms Ears, Nose, & Throat: No Symptoms Respiratory: No Symptoms Cardiac: No Symptoms Abdominal/Gastrointestinal: No Symptoms Genitourinary Symptoms: No Symptoms Musculoskeletal: No Symptoms Skin: No Symptoms Neurological: No Symptoms Psychological: No Symptoms Endocrine: No Symptoms Hematologic/Lymphatic: No Symptoms Immunological/Allergic: No Symptoms - Past Medical History Pertinent Past Medical History: Yes Neurological History: No Pertinent History ENT History: No Pertinent History Cardiac History: Congestive Heart Failure, Coronary Artery Disease Respiratory History: COPD Endocrine Medical History: Diabetes Type II Musculoskeletal History: No Pertinent History GI Medical History: No Pertinent History History: No Pertinent History Psycho-Social History: No Pertinent History Male Reproductive Disorders: No Pertinent History - Past Surgical History Past Surgical History: Yes Neuro Surgical History: No Pertinent History Cardiac: No Pertinent History Respiratory: No Pertinent History Gastrointestinal: No Pertinent History Genitourinary: No Pertinent History Musculoskeletal: Other Male Surgical History: No Pertinent History Other Surgical History: LEFT SHOULDER - Social History Smoking Status: Former smoker Exposure to second hand smoke: No Drug Use: none Patient Lives Alone: No ([facility]) - Nursing Vital Signs Nursing Vital Signs: Initial Vital Signs Temperature 98.7 F 01/27/21 16:17 Pulse Rate 100 H 01/27/21 16:17 Respiratory Rate 20 01/27/21 16:17 Blood Pressure 110/68 01/27/21 16:17 O2 Sat by Pulse Oximetry 98 01/27/21 16:17 Pain Scale Pain Intensity 0 - Physical Exam General Appearance: no apparent distress, alert, anxiety Eye Exam: PERRL/EOMI, eyes nml inspection Ears, Nose, Throat Exam: normal ENT inspection, moist mucous membranes Neck Exam: normal inspection, non-tender, supple, full range of motion Respiratory Exam: normal breath sounds, lungs clear, airway intact, No chest tenderness, No respiratory distress Cardiovascular Exam: regular rate/rhythm, normal heart sounds, normal peripheral pulses Gastrointestinal/Abdomen Exam: soft, normal bowel sounds, No tenderness Rectal Exam: not done Back Exam: normal inspection, normal range of motion, No CVA tenderness, No vertebral tenderness Extremity Exam: normal inspection, normal range of motion, pelvis stable Neurologic Exam: alert, cooperative, data integration developer II-XII nml as tested, normal mood/affect, nml cerebellar function, nml station & gait, sensation nml Skin Exam: normal color, warm, dry Lymphatic Exam: No adenopathy SpO2 Interpretation: normal O2 Delivery: Room Air - Course Nursing assessment & vital signs reviewed: Yes Ordered Tests: Active Orders 24 hr Category Date Time Status IV Insertion STAT Care 01/27/21 17:28 Active Pulse Oximetry (ED) STAT Care 01/27/21 17:28 Active CHEST 1 VIEW (PORTABLE) Stat Exams 01/27/21 17:30 Taken BLOOD CULTURE Stat Lab 01/27/21 17:45 Received CBC W DIFF Stat Lab 01/27/21 17:40 Completed CMP Stat Lab 01/27/21 17:40 Completed INFLUENZA A+B BASSEM Stat Lab 01/27/21 17:45 Completed Lactic Acid Stat Lab 01/27/21 17:40 Completed Manual Differential NC Stat Lab 01/27/21 17:40 Completed T4 (Thyroxine) Stat Lab 01/27/21 17:40 Received TSH, 3RD Generation Stat Lab 01/27/21 17:40 Received Medication Summary Discontinued Medications Generic Name Dose Route Start Last Admin Trade Name Tatyana PRN Reason Stop Dose Admin Sodium Chloride 500 mls @ 500 mls/hr 01/27/21 17:29 01/27/21 18:42 Sodium Chloride 0.9% 500 Ml IV 01/27/21 18:28 Infused .Q1H ONE Infusion Sodium Chloride Confirm 01/27/21 17:39 Sodium Chloride 0.9% 500 Ml Administered 01/27/21 17:40 Dose 500 mls @ ud IV .STK-MED ONE Lab/Rad Data: Laboratory Result Diagrams 01/27/21 17:40 01/27/21 17:40 Laboratory Results 01/27/21 01/27/21 01/27/21 Range/Units 17:45 17:40 17:40 WBC (4.0-10.5) K/mm3 RBC (4.1-5.6) M/mm3 Hgb (12.5-18.0) gm/dl Hct (42-50) % MCV (78-100) fl MCH (26-32) pg MCHC (32-36) g/dl RDW (11.5-14.0) % Plt Count (150-450) K/mm3 MPV (7.5-11.0) fl Sodium 127 L (137-145) mmol/L Potassium 4.6 (3.5-5.1) mmol/L Chloride 93 L (98-107) mmol/L Carbon Dioxide 27 (22-30) mmol/L Anion Gap 11.7 (5-15) MEQ/L BUN 16 (9-20) mg/dL Creatinine 0.75 (0.66-1.25) mg/dL Estimated GFR > 60.0 ML/MIN Glucose 132 H (74-106) mg/dL Lactic Acid 1.6 (0.4-2.0) Calcium 8.8 (8.4-10.2) mg/dL Total Bilirubin 1.20 (0.2-1.3) mg/dL AST 52 (17-59) U/L ALT 56 H (0-50) U/L Alkaline Phosphatase 92 (38-126) U/L Serum Total Protein 7.0 (6.3-8.2) g/dL Albumin 4.0 (3.5-5.0) g/dL Influenza Type A Ag NEGATIVE (NEGATIVE) Influenza Type B Ag POSITIVE (NEGATIVE) 01/27/21 Range/Units 17:40 WBC 9.1 (4.0-10.5) K/mm3 RBC 4.16 (4.1-5.6) M/mm3 Hgb 12.7 (12.5-18.0) gm/dl Hct 39.0 L (42-50) % MCV 93.8 (78-100) fl MCH 30.5 (26-32) pg MCHC 32.6 (32-36) g/dl RDW 15.2 H (11.5-14.0) % Plt Count 193 (150-450) K/mm3 MPV 9.6 (7.5-11.0) fl Sodium (137-145) mmol/L Potassium (3.5-5.1) mmol/L Chloride (98-107) mmol/L Carbon Dioxide (22-30) mmol/L Anion Gap (5-15) MEQ/L BUN (9-20) mg/dL Creatinine (0.66-1.25) mg/dL Estimated GFR ML/MIN Glucose (74-106) mg/dL Lactic Acid (0.4-2.0) Calcium (8.4-10.2) mg/dL Total Bilirubin (0.2-1.3) mg/dL AST (17-59) U/L ALT (0-50) U/L Alkaline Phosphatase (38-126) U/L Serum Total Protein (6.3-8.2) g/dL Albumin (3.5-5.0) g/dL Influenza Type A Ag (NEGATIVE) Influenza Type B Ag (NEGATIVE) - Progress Progress: improved, pain not gone completely, re-examined Progress Note: 01/27/21 18:53 Chest x-ray shows no acute cardiopulmonary process. Medical decision making: This patient has been feeling a bit weak the last few days. He is being treated for urinary tract infection at this time. I did review old labs and he had significantly low sodium levels but in the last 3 days they have improved significantly but still below normal. We did give the patient normal saline again this evening. The patient has been diagnosed with an influenza B infection. It is beyond the 48 hours of symptoms and therefore we will not treat him with Tamiflu. Patient is stable for discharge back to the long-term. Counseled pt/family regarding: lab results, diagnosis, need for follow-up, rad results - Departure Departure Disposition: Extended Care Facility Clinical Impression: Weakness, Influenza B Condition: Stable Critical Care Time: No Referrals: TOMAS CHAUHAN [Primary Care Provider] - Additional Instructions: Continue antibiotics as prescribed. Follow-up with patient's primary care provider for further management.
[2021-01-27] MEDS ORDERED: Sodium Chloride 0.9% 500 ML 500 ML IV ONE (17:39)
[2021-01-27] MEDS: Sodium Chloride 0.9% 500 ML 500 ML IV ONE (17:40)
[2021-01-27 18:14] LABS: Hemoglobin 12.7 gm/dl (12.5-18.0); Mean Cell Volume 93.8 fl (78-100); Mean Corpuscular Hemoglobin 30.5 pg (26-32); Mean Corpuscular Hgb Concent. 32.6 g/dl (32-36); Mean Platelet Volume 9.6 fl (7.5-11.0); Platelet Count 193 K/mm3 (150-450); Red Blood Count 4.16 M/mm3 (4.1-5.6); Red Cell Distribution Width 15.2 % (11.5-14.0); White Blood Count 9.1 K/mm3 (4.0-10.5)
[2021-01-27 18:24] LABS: ALKALINE PHOSPHATASE 92 U/L (38-126); ANION GAP 11.7 MEQ/L (5-15); BLOOD UREA NITROGEN 16 mg/dL (9-20); CHLORIDE 93 mmol/L (98-107); Calcium 8.8 mg/dL (8.4-10.2); Carbon Dioxide 27 mmol/L (22-30); Creatinine 1 0.75 mg/dL (0.66-1.25); EST GLOMERULAR FILTRATION RATE > 60.0 ML/MIN; Glucose 132 mg/dL (74-106); Potassium 4.6 mmol/L (3.5-5.1); SGOT/AST 52 U/L (17-59); SGPT/ALT 56 U/L (0-50); SODIUM 127 mmol/L (137-145)
[2021-01-27 18:43] LABS: INFLUENZA A NEGATIVE (NEGATIVE)
[2021-01-27 18:44] LABS: INFLUENZA B POSITIVE (NEGATIVE)
[2021-01-27 19:15] VITALS: BP 108/88; PULSE 107; O2SAT 97
[2021-01-27 19:18] LABS: T4 (Thyroxine) 6.3 ug/dL (5.53-10.96); TSH, 3RD Generation 2.49 mIU/L (0.47-4.68)
--- NOTE | 2021-01-27 20:46 | XRAY ---
Indication: Congestion. Comparison: July 28, 2020. Portable chest again demonstrates cardiomegaly and tiny left base calcified granuloma. No focal infiltrate, consolidation, or large effusion. Bony thorax again demonstrates osteopenia, degenerative changes, old left humeral neck fracture, and left shoulder metallic foreign body. Impression: Cardiomegaly. Negative for acute pneumonic process or CHF.
[2021-01-27 22:49] LABS: BAND 2 % (0.0-2.0); Basophil 1 % (0.0-1.0); Eosinophil 1 % (0.00-3.0); Lymphocytes 12 % (24-44); Monocyte 3 % (0.0-12.0); Neutrophils 81 % (36.-66.); Platelet Estimate NORMAL (NORMAL); Total Cells Counted 100
== END 2021-01-27 20:10 ==
LOC: ED 16:10
DX: J10.1 Influenza due to other identified influenza virus with other respiratory manifestations (principal); E03.9 Hypothyroidism, unspecified
CPT/HCPCS: 36000; 36415; 71045; 80053; 83605; 84436; 84443; 85025; 87040; 87400; 94760; 96360; 99284

== ENCOUNTER 2021-02-23 12:26 | Emergency (ER) | payer MEDICARE ==
[2021-02-23 12:46] LABS: Absolute Neutrophil Ct (ANC) 10.09 (1.4-6.9); BASOPHIL % 0.2 % (0.0-0.4); Basophil (Absolute #) 0.02 (0-0.4); Eosinophil % 0.4 % (0.00-5.0); Eosinophil (Absolute #) 0.05 (0-0.5); Hematocrit 55.9 % (42-50); Hemoglobin 16.9 gm/dl (12.5-18.0); Lymphocyte (Absolute #) 1.46 (1.0-4.6); Lymphocytes % 11.3 % (24.0-44.0); Mean Cell Volume 94.1 fl (78-100); Mean Corpuscular Hemoglobin 28.5 pg (26-32); Mean Corpuscular Hgb Concent. 30.2 g/dl (32-36); Mean Platelet Volume 10.5 fl (7.5-11.0); Monocyte (Absolute #) 1.26 (0.0-1.3); Monocytes % 9.8 % (0.0-12.0); Neutrophil % 78.3 % (36.0-66.0); Platelet Count 176 K/mm3 (150-450); Red Blood Count 5.94 M/mm3 (4.1-5.6); White Blood Count 12.9 K/mm3 (4.0-10.5)
--- NOTE | 2021-02-23 12:48 | ERPHSYRPT ---
- History of Present Illness Time Seen by Provider: 02/23/21 12:28 Source: patient, EMS, senior care records Exam Limitations: clinical condition Patient Subjective Stated Complaint: pt here abnormal labs,higinio is 158 today, and staff at [facility] states he is more confused than normal Triage Nursing Assessment: pt alert, confused, resp easy, has wet sounding cough chest with diminished bs , face mask in place, skin w/d/p. Physician History: 71 years old male with history of congestive heart failure, hypertension, hyperl ipidemia, diabetes mellitus, hypothyroidism resident of senior care is brought in the ER with worsening confusion. Patient does have confusion at his baseline but today is worse than his usual and lab work showed serum sodium of 158. No vomiting diarrhea reported but has decreased oral intake. No fever or chills reported. Does have minimal productive cough. Has chronic shortness of breath on 2 L oxygen. History is limited secondary to his confusion Timing/Duration: today Severity: moderate Associated Symptoms: cough Allergies/Adverse Reactions: codeine Allergy (Unknown, Verified 02/23/21 12:37) Penicillins Allergy (Unknown, Verified 02/23/21 12:37) strawberry Allergy (Verified 02/23/21 12:37) Home Medications: Acetaminophen 325 mg [Tylenol 325 mg] 650 mg PO Q4HPRN PRN 07/26/20 [History] Atorvastatin Calcium [Lipitor] 40 mg PO 1600 07/26/20 [History] Bimatoprost 0.01% [Lumigan 0.01% 2.5 ml] 1 drop OP HS 07/26/20 [History] Carvedilol 3.125 mg [Coreg 3.125 MG] 3.125 mg PO BID 07/26/20 [History] Clopidogrel Bisulfate 75 mg [PLAVIX 75 MG Tablet] 75 mg PO DAILY 07/26/20 [History] Furosemide 40 mg [Lasix 40 MG] 40 mg PO DAILY 07/26/20 [History] Levothyroxine Sodium 25 Mcg [Synthroid 25 Mcg] 25 mcg PO 0600 07/26/20 [History] Loratadine 10 mg [Claritin 10 mg] 10 mg PO DAILY PRN PRN 07/26/20 [History] Magnesium Hydroxide 30 ml [Milk of Magnesia 30 ml] 30 ml PO DAILY PRN PRN 07/26/20 [History] Metformin HCl 500 mg [Glucophage 500 MG] 500 mg PO BIDWM 07/26/20 [History] Ondansetron HCl [Zofran] 4 mg PO Q4HPRN PRN 07/26/20 [History] Potassium Chloride 10 Meq Tab* [Klor Con 10 MEQ] 20 meq PO DAILY 07/26/20 [History] Sacubitril/Valsartan [Entresto 24 mg-26 mg Tablet] 1 each PO BID 07/26/20 [History] Sodium Phosphate,[place]-Dibasic [Enema] 133 ml RC DAILY PRN PRN 07/26/20 [History] Cephalexin Mh 500 mg [Keflex 500 mg] 500 mg PO DAILY 01/27/21 [History] Hx Tetanus, Diphtheria Vaccination/Date Given: Yes Hx Influenza Vaccination/Date Given: Yes Hx Pneumococcal Vaccination/Date Given: Yes Immunizations Up to Date: Yes Travel Risk - International Travel Have you traveled outside of the country in past 3 weeks: No - Coronavirus Screening Are you exhibiting any of the following symptoms?: No - Vaccine Status Have you recieved a Covid-19 vaccination: Yes 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 - Vaccination Dates Date of 2cond Vaccination (if applicable): n/A - Review of Systems All Other Systems: Unable due to condition - Past Medical History Pertinent Past Medical History: Yes Neurological History: No Pertinent History ENT History: No Pertinent History Cardiac History: Congestive Heart Failure, Coronary Artery Disease Respiratory History: COPD Endocrine Medical History: Diabetes Type II Musculoskeletal History: No Pertinent History GI Medical History: No Pertinent History History: No Pertinent History Psycho-Social History: No Pertinent History Male Reproductive Disorders: No Pertinent History - Past Surgical History Past Surgical History: Yes Neuro Surgical History: No Pertinent History Cardiac: No Pertinent History Respiratory: No Pertinent History Gastrointestinal: No Pertinent History Genitourinary: No Pertinent History Musculoskeletal: Other Male Surgical History: No Pertinent History Other Surgical History: LEFT SHOULDER - Social History Smoking Status: Former smoker Exposure to second hand smoke: No Drug Use: none Patient Lives Alone: No ([facility]) - Nursing Vital Signs Nursing Vital Signs: Initial Vital Signs Temperature 97.1 F 02/23/21 12:27 Pulse Rate 110 H 02/23/21 12:27 Respiratory Rate 22 02/23/21 12:27 Blood Pressure 98/75 02/23/21 12:27 O2 Sat by Pulse Oximetry 96 02/23/21 12:27 Pain Scale Pain Intensity 0 - Physical Exam General Appearance: no apparent distress, alert Eye Exam: PERRL/EOMI, eyes nml inspection Ears, Nose, Throat Exam: TMs normal, dry mucous membranes Neck Exam: normal inspection, supple, full range of motion Respiratory Exam: normal breath sounds, diminished breath sounds, crackles/rales, rhonchi, wheezing Cardiovascular Exam: normal heart sounds, tachycardia Gastrointestinal/Abdomen Exam: soft, normal bowel sounds, No tenderness Back Exam: normal inspection, No CVA tenderness Extremity Exam: normal inspection, normal range of motion Neurologic Exam: alert, rehab trainer II-XII nml as tested, No oriented x 3 Skin Exam: normal color SpO2 Interpretation: normal SpO2: 96 O2 Delivery: Nasal Cannula - Course EKG Interpreted by Me: RATE ([id number]), Left Sharon Deviation, prolonged QT interval, Left Bundle Branch Block, Other (T depression in lateral leads. Second-degree heart block. PACs and PVCs.) Ordered Tests: Active Orders 24 hr Category Date Time Status EKG-ER Only STAT Care 02/23/21 12:29 Active IV Insertion STAT Care 02/23/21 12:29 Active NPO (ED) STAT Care 02/23/21 12:29 Active CHEST 1 VIEW (PORTABLE) Stat Exams 02/23/21 12:29 Completed BLOOD CULTURE Stat Lab 02/23/21 12:30 Received BNP [NT PRO BNP] Stat Lab 02/23/21 13:09 Completed CBC W DIFF Stat Lab 02/23/21 12:30 Completed CMP Stat Lab 02/23/21 12:30 Completed Lactic Acid Stat Lab 02/23/21 12:40 Completed TROPONIN Q3H Lab 02/23/21 12:30 Completed TROPONIN Q3H Lab 02/23/21 15:30 Ordered TROPONIN Q3H Lab 02/23/21 18:30 Ordered TROPONIN Q3H Lab 02/23/21 21:30 Ordered TROPONIN Q3H Lab 02/24/21 00:30 Ordered UA W/RFX UR CULTURE Stat Lab 02/23/21 12:29 Ordered Medication Summary Generic Name Dose Route Start Last Admin Trade Name Tatyana PRN Reason Stop Dose Admin Levofloxacin/Dextrose 750 mg in 150 mls @ 100 mls/hr 02/23/21 13:28 02/23/21 13:41 Levofloxacin 750mg/150ml D5w IV 02/23/21 14:57 100 ml/hr STAT STA 100 mls/hr Administration Sodium Chloride 500 mls @ 500 mls/hr 02/23/21 13:30 02/23/21 13:39 Sodium Chloride 0.9% 500 Ml IV 02/23/21 14:29 500 mls/hr .Q1H ONE Administration Sodium Chloride 1,000 mls @ 100 mls/hr 02/23/21 14:00 Sodium Chloride 0.45% 1000 Ml IV 03/25/21 13:59 .Q10H NEENA Discontinued Medications Generic Name Dose Route Start Last Admin Trade Name Tatyana PRN Reason Stop Dose Admin Aspirin 600 mg 02/23/21 13:54 Aspirin 600 Mg CA 02/23/21 13:55 STAT ONE Sodium Chloride Confirm 02/23/21 13:37 Sodium Chloride 0.9% 500 Ml Administered 02/23/21 13:38 Dose 500 mls @ ud IV .STK-MED ONE Levofloxacin/Dextrose Confirm 02/23/21 13:37 Levofloxacin 750mg/150ml D5w Administered 02/23/21 13:38 Dose 750 mg in 150 mls @ ud IV .STK-MED ONE Lab/Rad Data: Laboratory Result Diagrams 02/23/21 12:30 02/23/21 12:30 Laboratory Results 02/23/21 02/23/21 02/23/21 Range/Units 13:09 12:40 12:30 WBC (4.0-10.5) K/mm3 RBC (4.1-5.6) M/mm3 Hgb (12.5-18.0) gm/dl Hct (42-50) % MCV (78-100) fl MCH (26-32) pg MCHC (32-36) g/dl RDW (11.5-14.0) % Plt Count (150-450) K/mm3 MPV (7.5-11.0) fl Gran % (36.0-66.0) % Eos # (Auto) (0-0.5) Absolute Lymphs (auto) (1.0-4.6) Absolute Monos (auto) (0.0-1.3) Lymphocytes % (24.0-44.0) % Monocytes % (0.0-12.0) % Eosinophils % (0.00-5.0) % Basophils % (0.0-0.4) % Absolute Granulocytes (1.4-6.9) Basophils # (0-0.4) Sodium (137-145) mmol/L Potassium (3.5-5.1) mmol/L Chloride (98-107) mmol/L Carbon Dioxide (22-30) mmol/L Anion Gap (5-15) MEQ/L BUN (9-20) mg/dL Creatinine (0.66-1.25) mg/dL Estimated GFR ML/MIN Glucose (74-106) mg/dL Lactic Acid 2.3 H (0.4-2.0) Calcium (8.4-10.2) mg/dL Total Bilirubin (0.2-1.3) mg/dL AST (17-59) U/L ALT (0-50) U/L Alkaline Phosphatase (38-126) U/L Troponin I 2.710 H* (0.000-0.034) ng/mL NT-Pro-B Natriuret Pep 41610 H (0-900) pg/mL Serum Total Protein (6.3-8.2) g/dL Albumin (3.5-5.0) g/dL 02/23/21 02/23/21 Range/Units 12:30 12:30 WBC 12.9 H (4.0-10.5) K/mm3 RBC 5.94 H (4.1-5.6) M/mm3 Hgb 16.9 (12.5-18.0) gm/dl Hct 55.9 H (42-50) % MCV 94.1 (78-100) fl MCH 28.5 (26-32) pg MCHC 30.2 L (32-36) g/dl RDW 18.0 H (11.5-14.0) % Plt Count 176 (150-450) K/mm3 MPV 10.5 (7.5-11.0) fl Gran % 78.3 H (36.0-66.0) % Eos # (Auto) 0.05 (0-0.5) Absolute Lymphs (auto) 1.46 (1.0-4.6) Absolute Monos (auto) 1.26 (0.0-1.3) Lymphocytes % 11.3 L (24.0-44.0) % Monocytes % 9.8 (0.0-12.0) % Eosinophils % 0.4 (0.00-5.0) % Basophils % 0.2 (0.0-0.4) % Absolute Granulocytes 10.09 H (1.4-6.9) Basophils # 0.02 (0-0.4) Sodium 159 H* (137-145) mmol/L Potassium 3.3 L (3.5-5.1) mmol/L Chloride 119 H (98-107) mmol/L Carbon Dioxide 30 (22-30) mmol/L Anion Gap 13.5 (5-15) MEQ/L BUN 37 H (9-20) mg/dL Creatinine 1.19 (0.66-1.25) mg/dL Estimated GFR > 60.0 ML/MIN Glucose 130 H (74-106) mg/dL Lactic Acid (0.4-2.0) Calcium 9.0 (8.4-10.2) mg/dL Total Bilirubin 1.90 H (0.2-1.3) mg/dL AST 67 H (17-59) U/L ALT 37 (0-50) U/L Alkaline Phosphatase 122 (38-126) U/L Troponin I (0.000-0.034) ng/mL NT-Pro-B Natriuret Pep (0-900) pg/mL Serum Total Protein 7.4 (6.3-8.2) g/dL Albumin 3.7 (3.5-5.0) g/dL - Progress Progress: unchanged Progress Note: 02/23/21 13:56 Patient was hypotensive on presentation with systolic in low 80s, given 500 mm of normal saline bolus and improved in upper 90s. EKG did not show any acute ST elevations. Work-up showed sodium of 159 with mildly low potassium 3.3 and BUN of 37 with baseline creatinine around 1.1. Free water deficit is 3.4 L and started on half-normal saline at a rate of 100/h for slow correction of sodium as patient is hypovolemic. He has chest x-ray finding consistent with right- sided infiltrates and given a dose of Levaquin. Some element of congestion and BNP of 11,000 with a troponin 2.7 but patient denies any chest pain. I believe it is more of his CHF related elevation in troponin. Given for rectal aspirin. Has a white count of 12 and hemoconcentration secondary to dehydration. Discussed with Dr. Tirado patient's primary, recommended transfer to [facility] where his supply aide is as patient might need cardiology and nephrology services. Discussed with Dr. Moore at [facility], reviewed patient history, work-up and current management, agreed with transfer. Discussed with : Jenni Will see patient in: other Counseled pt/family regarding: lab results, diagnosis, rad results - Departure Departure Disposition: Transfer Clinical Impression: Hypernatremia, NSTEMI (non-ST elevated myocardial infarction) CHF (congestive heart failure) Qualifiers: Heart failure type: unspecified Heart failure chronicity: unspecified Qualified Code(s): I50.9 - Heart failure, unspecified Pneumonia Qualifiers: Pneumonia type: due to unspecified organism Laterality: right Lung location: unspecified part of lung Qualified Code(s): J18.9 - Pneumonia, unspecified organism Condition: Fair Critical Care Time: Yes Critical Care Time(excluding separately billable procedures): Critical 30-74 mins Referrals: TOMAS CHAUHAN [Primary Care Provider] - Instructions: Heart Failure
[2021-02-23 13:01] LABS: ALBUMIN 3.7 g/dL (3.5-5.0); ALKALINE PHOSPHATASE 122 U/L (38-126); ANION GAP 13.5 MEQ/L (5-15); BLOOD UREA NITROGEN 37 mg/dL (9-20); CHLORIDE 119 mmol/L (98-107); Carbon Dioxide 30 mmol/L (22-30); Creatinine 1 1.19 mg/dL (0.66-1.25); EST GLOMERULAR FILTRATION RATE > 60.0 ML/MIN; Glucose 130 mg/dL (74-106); Potassium 3.3 mmol/L (3.5-5.1); SGOT/AST 67 U/L (17-59); SGPT/ALT 37 U/L (0-50); Total Protein 7.4 g/dL (6.3-8.2)
[2021-02-23 13:08] LABS: SODIUM 159 mmol/L (137-145)
--- NOTE | 2021-02-23 13:12 | XRAY ---
Indication: Acute mental status change. Comparison: December 28, 2020. Portable chest demonstrates new hazy right infrahilar infiltrate versus atelectasis and stable tiny left base calcified granuloma. Remaining heart and lungs unremarkable.
[2021-02-23] MEDS ORDERED: LEVOFLOXACIN 750MG/150ML D5W 750 MG/150 ML BAG IV STA (13:28)
[2021-02-23] MEDS ORDERED: Sodium Chloride 0.9% 500 ML 500 ML IV ONE ×2 (13:30→13:37)
[2021-02-23] MEDS ORDERED: LEVOFLOXACIN 750MG/150ML D5W 750 MG/150 ML BAG IV ONE (13:37)
[2021-02-23] MEDS ORDERED: ASPIRIN 600 MG PR ONE (13:54)
[2021-02-23 14:59] VITALS: BP 121/64; O2SAT 97
[2021-02-23 15:02] VITALS: PULSE 65
[2021-02-23] MEDS ORDERED: ASPIRIN 600 MG ONE (15:10)
== END 2021-02-23 15:37 | disposition short-term general hospital (02) ==
LOC: ED 12:26
DX: I50.9 Heart failure, unspecified (principal); J18.9 Pneumonia, unspecified organism; I10 Essential (primary) hypertension
CPT/HCPCS: 36000; 36415; 71045; 80053; 83605; 83880; 84484; 85025; 85027; 87040; 93005; 96360; 96365; 99285; 99291; P9604; J1956; A9270-GY